=== PATIENT | male | born 1930 | race Caucasian/White ===

== ENCOUNTER 2016-10-29 14:43 | Emergency (ER) | payer OTHER ==
[2016-10-29 14:49] VITALS: BP 134/68; TEMP 99.3; BMI 29.5
[2016-10-29 15:25] LABS: BASOPHILS % (AUTO) 0.2 % (0.0-3.0); EOSINOPHILS % (AUTO) 0.1 % (0.0-7.0); HEMATOCRIT 35.4 % (42.0-52.0); HEMOGLOBIN 12.4 g/dl (14.0-18.0); IMMATURE GRANULOCYTE % (AUTO) 0.7 % (0.0-5.0); LYMPHOCYTES # (AUTO) 0.7 K/uL (0.60-3.4); LYMPHOCYTES % (AUTO) 5.3 (10.0-50.0); MEAN CORPUSCULAR HEMOGLOBIN 30.3 pg (27.0-31.0); MEAN CORPUSCULAR VOLUME 86.6 fl (80.0-94.0); MONOCYTES % (AUTO) 7.3 (0-10); NEUTROPHILS # (AUTO) 11.3 K/ul (2.0-6.9); NEUTROPHILS % (AUTO) 86.4; PLATELET COUNT 183 10^3/uL (140-440); RED BLOOD COUNT 4.09 10^6/ul (4.70-6.10)
--- NOTE | 2016-10-29 15:47 | DI ---
EXAM: Single frontal view of the chest HISTORY: Shortness of breath. COMPARISON: Chest x-ray 08/01/2014 FINDINGS: Cardiomediastinal silhouette is unchanged with atherosclerotic disease of the aorta. The pulmonary arteries are prominent but unchanged. There is mild pulmonary vascular indistinctness and minimal ground-glass. There is no pneumothorax or pleural effusion. There is no consolidation. T he osseous structures are unremarkable. IMPRESSION: 1. Prominent pulmonary arteries and mild pulmonary vascular indistinctness may suggest a component of vascular congestion. 2. Minimal ground-glass in the lower lobes may represent component of small airways inflammation ve rsus vascular congestion.
--- NOTE | 2016-10-29 15:48 | DI ---
EXAM: Radiographs, left ankle HISTORY: Left ankle pain. COMPARISON: None available. TECHNIQUE: Two views. FINDINGS: Bone mineralization is normal. There is no fracture or dislocation. The joint spaces ar e maintained although there is mild spurring along the dorsal aspect of the joints of the hindfoot a nd midfoot. Moderate sized calcaneal spurs are present at the Achilles tendon insertion and plantar aponeurosis. Atherosclerotic calcification. Diffuse subcutaneous edema noted. IMPRESSION: No fracture or dislocation.
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
[2016-10-29 16:06] LABS: ALANINE AMINOTRANSFERASE < 6 U/L (12-78); ALBUMIN 2.9 g/dL (3.4-5.0); ALBUMIN/GLOBULIN RATIO 0.66; ALKALINE PHOSPHATASE 55 U/L (56-119); ANION GAP 15.1; ASPARTATE AMINO TRANSFERASE 9 U/L (15-37); BILIRUBIN,TOTAL 0.92 mg/dL (0.00-1.20); BLOOD UREA NITROGEN 21 mg/dL (7-18); CARBON DIOXIDE 25 mmol/L (23-31); CHLORIDE 101 mmol/L (98-107); CREATINE KINASE 43 U/L; GLUCOSE 280 mg/dL (82-115); POTASSIUM 4.1 mmol/L (3.5-5.1); SODIUM 137 mmol/L (136-145); TOTAL PROTEIN 7.3 g/dL (5.8-8.1)
--- NOTE | 2016-10-29 16:10 | ED.PDOC ---
General ED Provider: Dr. KATHY VASQUEZ Chief Complaint: Altered Mental Status Stated Complaint: altered mental status Time Seen by Physician: 15:00 (history obtained from pt's son) Mode of Arrival: Walk-In Information Source: Patient Exam Limitations: No limitations Primary Care Provider: JESSICA PARRISH Referred to ED by: Other (supportive living pt arrived aox3) Nursing and Triage Documentation Reviewed and Agree: Yes (resides in a supportive living, was reported to be altered although AOX3 ) Miscellaneous Complaint Exam - Complex/Multi-System Complaint/Exam Onset/Duration: early today pt would not eat he was uncooperative Symptoms Are: Resolved (nursing described not coperative as new for pt at no point pt was disorientated) Initial Severity: Mild Current Severity: None Location of Pain: none Pain Radiates to: none Associated Signs and Symptoms: Denies: Decreased responsiveness, Confusion, Agitation, Dizziness, Weakness, Syncope, Headache, Short of air, Cough, Wheezing , Hemoptysis, Chest pain, Palpitations, Edema, Nausea, Vomiting, Diarrhea, Abdominal pain, Back pain, Dysuria, Hematemesis, Melena, Decreased oral intake, Fever, Diaphoresis, Immunocompromised, Anticoagulation Therapy, Recent medication changes, Indwelling medical biller coder, Prior MRSA, Prior VRE, Recent trauma, Remote trauma Recent Echo/LV Function: No Respiratory Distress: None JVD Present: No Tachypnea Present: No Stridor Present: No Glascow Coma Scale (see protocol): 15 Meningeal Signs Positive: No Focal Weakness: Present: None Focal Sensory Loss: Present: None Gait: Unable Gag Reflex Present: Yes Babinski Sign: Negative Right, Negative Left Joint Swelling Present: No In-Dwelling Device Present: No Differential Diagnosis: Metabolic Abnormality, Sepsis (diabetic foot ulcer ), Other Quality Indicators for AMI: EKG in 10min. Quality Indicator For Non-Traumatic Chest Pain/Syncope: EKG Performed Review of Systems - Review Of Systems Constitutional: Reports: Malaise Eyes: Reports: No symptoms Ears, Nose, Mouth, Throat: Reports: No symptoms Respiratory: Reports: No symptoms Cardiac: Reports: No symptoms GI: Reports: No symptoms : Reports: No symptoms Musculoskeletal: Reports: Other (LEFT FOOT ULCER PLEASE SEE PHOTOS) Skin: Reports: No symptoms Neurological: Reports: Cognitive dysfunction Endocrine: Reports: No symptoms Hematologic/Lymphatic: Reports: No symptoms All Other Systems: Reviewed and Negative Past Medical History - Past Medical History Previously Healthy: No Endocrine: Reports: DM 2 Cardiovascular: Reports: CAD, Hypertension Respiratory: Reports: None Hematological: Reports: None Gastrointestinal: Reports: None Genitourinary: Reports: None Neuro/Psych: Reports: None Musculoskeletal: Reports: None 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 - Surgical History General Surgical History: Reports: None - Family History Family History: Reports: Unknown - Social History Smoking Status: Never smoker Hx Substance Use: No Alcohol Screening: None Physical Exam - Physical Exam Appearance: Ill-appearing Ill-appearing: Mild Pain Distress: Mild Eyes: NARAYAN, EOMI, Conjunctiva clear ENT: Ears normal, Nose normal, Oropharynx normal Respiratory: Airway patent, Breath sounds clear, Breath sounds equal, Respirations nonlabored Cardiovascular: RRR, Pulses normal, No rub, No murmur GI/: Soft, Nontender, No masses, Bowel sounds normal, No Organomegaly Musculoskeletal: Edema (bilateral lower ext , diabetic foot ulcer please see photos ) Skin: Warm, Dry, Normal color Neurological: Sensation intact, Motor intact, Reflexes intact, Cranial nerves intact, Alert, Oriented Psychiatric: Affect appropriate, Mood appropriate Interpretation - Radiology Interpretation Radiology Interpretation By: Radiologist Radiology Results: Negative Exam Interpreted: CXR - Manager Business Information Rate: Normal Rhythm: Sinus Ectopy: None - EKG Interpretation Rate: Normal Rhythm: Sinus Ectopy: None [place]: [place] ST Segment: Normal Physician Notification - Case Discussed Physician Notified: SHANDA FLORES Time of Notification: 16:46 (TRANSFER ) Critical Care Note - Critical Care Note Total Time (mins): 0 Course - Course Hematology/Chemistry: 10/29/16 15:00 10/29/16 15:00 Orders, Labs, Meds: Lab Review 10/29/16 15:00 WBC 13.10 H RBC 4.09 L Hgb 12.4 L Hct 35.4 L MCV 86.6 MCH 30.3 MCHC 35.0 RDW Coeff of Lexy 12.4 Plt Count 183 Immature Gran % (Auto) 0.7 Neut % (Auto) 86.4 Lymph % (Auto) 5.3 L [place] % (Auto) 7.3 Eos % (Auto) 0.1 Baso % (Auto) 0.2 Immature Gran # (Auto) 0.1 Neut # 11.3 H Lymph # 0.7 [place] # 1.0 Eos # 0.0 Baso # 0.0 Sodium 137 Potassium 4.1 Chloride 101 Carbon Dioxide 25 Anion Gap 15.1 BUN 21 H Creatinine 1.40 H Estimated GFR (MDRD) 48.00 BUN/Creatinine Ratio 15.00 Glucose 280 H Calcium 10.0 Total Bilirubin 0.92 AST 9 L ALT < 6 L Alkaline Phosphatase 55 L Total Creatine Kinase 43 Troponin I 0.5940 H* Total Protein 7.3 Albumin 2.9 L Globulin 4.4 Albumin/Globulin Ratio 0.66 Orders Category Date Time Status EKG-(ED ONLY) Stat CARDIO 10/29/16 14:59 Completed EKG-(ED ONLY) Stat CARDIO 10/29/16 16:08 Completed BLOOD CULTURE Stat LAB 10/29/16 16:44 Ordered CBC W/ AUTO DIFF Stat LAB 10/29/16 15:00 Completed COMPREHENSIVE METABOLIC PANEL Stat LAB 10/29/16 15:00 Completed CREATINE KINASE Stat LAB 10/29/16 15:00 Completed LACTIC ACID Stat LAB 10/29/16 16:44 Ordered PROCALCITONIN Stat LAB 10/29/16 Ordered TROPONIN I Stat LAB 10/29/16 15:00 Completed URINALYSIS C & S IF INDICATED Stat LAB 10/29/16 14:59 Uncollected WOUND CULTURE Stat LAB 10/29/16 16:26 Ordered Ceftriaxone Sodium [Rocephin] MEDS 10/29/16 16:38 Discontinued 1 gm .ROUTE .STK-MED ONE Ceftriaxone Sodium [Rocephin] 1 gm MEDS 10/29/16 16:33 Active 0.9 % Sodium Chloride [Sodium Chloride] 50 ml IV ONCE Sodium Chloride 0.9% [Sodium Chloride] 500 ml MEDS 10/29/16 16:33 Active IV 125 mls/hr ANKLE, LEFT MIN 3 VIEWS Stat RADS 10/29/16 15:23 Completed CHEST, 1V AP ONLY Stat RADS 10/29/16 15:[address] HEAD W/O CONTRAST Stat RADS 10/29/16 14:59 Completed Medications Generic Name Dose Route Start Last Admin Trade Name Freq PRN Reason Stop Dose Admin Sodium Chloride 500 mls @ 125 mls/hr 10/29/16 16:33 Sodium Chloride IV 10/29/16 20:32 .Q4H STA Ceftriaxone Sodium 1 gm/ 50 mls @ 75 mls/hr 10/29/16 16:33 Sodium Chloride IV 10/29/16 17:12 ONCE STA Vital Signs: Temp Pulse Resp BP Pulse Ox 10/29/16 14:44 99.3 F 80 18 134/68 95 Departure - Departure Time of Disposition: 17:00 (spoke with the patients son and informed Dr parrish that we will transfer the patient. Wound evaluation and debridement was done. L ankle head CT and chest x ray was ordered and no abnormalities seen. ) Disposition: TSF SHORT-TRM HOSP Discharge Problem: Altered mental status Instructions: Diabetic Foot Ulcers (ED) Condition: Good Pt referred to PMD for follow-up: Yes (wants to transfer the pt) Allergies/Adverse Reactions: Allergies DANNY Inhibitors Allergy (Verified 10/29/16 15:19) perindopril erbumine [From Aceon] Adverse Reaction (Verified 10/29/16 15:19) Home Medications: Ambulatory Orders Aspirin [Aspirin EC] 81 mg PO DAILY 08/01/14 Tamsulosin HCl [Flomax] 0.4 mg PO DAILY 08/01/14 Donepezil HCl [Aricept] 5 mg PO DAILY tab-cap 07/19/15 Escitalopram Oxalate [Lexapro] 10 mg PO DAILY tab-cap 07/19/15 Levothyroxine Sodium [Synthroid] 50 mcg PO DAILY tab-cap 07/19/15 Lorazepam 0.5 mg PO BEDTIME tab-cap 07/19/15 Memantine HCl [Namenda Xr] 28 mg PO DAILY tab-cap 07/19/15 Pantoprazole Sodium [Protonix] 40 mg PO DAILY tab-cap 07/19/15 Pravastatin Sodium 40 mg PO BEDTIME tab-cap 07/19/15 Sitagliptin Phos/Metformin HCl [Janumet 50-500 Mg Tablet] 1 each PO DAILY tab- cap 07/19/15
[2016-10-29] MEDS ORDERED: ROCEPHIN 1 GM in SODIUM CHLORIDE 50 ML IV STA (16:33)
[2016-10-29] MEDS ORDERED: SODIUM CHLORIDE 500 ML IV STA (16:33)
[2016-10-29] MEDS ORDERED: ROCEPHIN ONE (16:38)
== END 2016-10-29 17:20 | disposition short-term general hospital (02) ==
LOC: ED 14:43
DX: R41.82 Altered mental status, unspecified (principal); E11.621 Type 2 diabetes mellitus with foot ulcer; L97.429 Non-pressure chronic ulcer of left heel and midfoot with unspecified severity; L97.529 Non-pressure chronic ulcer of other part of left foot with unspecified severity; Z79.4 Long term (current) use of insulin; R60.0 Localized edema; I25.10 Atherosclerotic heart disease of native coronary artery without angina pectoris; I11.9 Hypertensive heart disease without heart failure; Z79.899 Other long term (current) drug therapy
CPT/HCPCS: 36415; 80053; 82550; 83605; 84145; 84484; 85025; 87040; 87070; 93005; 93010; 96365; 99285

== ENCOUNTER 2016-10-29 17:26 | Outpatient (CLI) ==
[2016-10-29 14:49] VITALS: BMI 29.5
== END 2016-10-29 17:27 | disposition home or self-care (01) ==
LOC: AMBL 17:26
PROVIDERS: ATTEND Internal Medicine Geriatric Medicine
DX: S91.301A Unspecified open wound, right foot, initial encounter (principal); S91.104A Unspecified open wound of right lesser toe(s) without damage to nail, initial encounter; B95.62 Methicillin resistant Staphylococcus aureus infection as the cause of diseases classified elsewhere; E11.9 Type 2 diabetes mellitus without complications; G30.9 Alzheimer's disease, unspecified; F02.80 Dementia in other diseases classified elsewhere, unspecified severity, without behavioral disturbance, psychotic disturbance, mood disturbance, and anxiety

== ENCOUNTER 2016-12-11 23:50 | Emergency (ER) ==
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
[2016-12-12 00:19] VITALS: BP 122/65; TEMP 97.6; BMI 31.1
--- NOTE | 2016-12-12 00:36 | CT ---
EXAM: CT maxillofacial without intravenous contrast 12/12/2016. Sagittal and coronal reformatted i mages obtained HISTORY: Fall COMPARISON: 12/12/2016 FINDINGS: No gross soft tissue abnormality. The orbits, zygoma, maxilla and mandible appear intact. There are multiple mildly displaced nasal bone fractures. The paranasal sinuses appear well aerated. IMPRESSION: 1. Multiple mildly displaced nasal bone fractures. 2. The remaining osseous structures appear intact.
--- NOTE | 2016-12-12 00:36 | CT ---
EXAM: CT head without contrast. HISTORY: Fall. PROCEDURE: Contiguous axial CT images of the head without contrast with coronal and sagittal reform ats. FINDINGS: There is diffuse cerebral atrophy. The ventricles and basal cisterns are normal in size an d configuration. No evidence of mass or midline shift. No intracranial hemorrhage or evidence of l arge vessel infarct. No extra-axial fluid collection. There are chronic small vessel ischemic fuentes es in the white matter. There is minimal soft tissue swelling in the right frontal scalp. No skull f racture. The paranasal sinuses and mastoid air cells are well-aerated. Impression: No intracranial hemorrhage or skull fracture. Chronic small vessel ischemic changes. Diffuse cerebral atrophy. Minimal soft tissue swelling in the right frontal scalp.
--- NOTE | 2016-12-12 00:42 | CT ---
EXAM: CT cervical spine without intravenous contrast 12/11/2016. Sagittal and coronal reformatted images obtained HISTORY: Fall COMPARISON: None FINDINGS: Normal anatomic alignment is maintained. The vertebral bodies appear intact without evide nce of fracture. The facet joints align normally. The prevertebral soft tissues appear within normal limits. Multilevel chronic degenerative disc disease and facet arthropathy. Multilevel posterior disc bulge /osteophyte complex flattening the thecal sac. There is suggestion of multilevel spinal stenosis th roughout the cervical spine. Multilevel chronic neural foraminal stenosis. IMPRESSION: 1. No acute post traumatic osseous abnormality of the cervical spine. 2. Chronic degenerative disc disease. Multilevel spinal and neural foraminal stenosis.
== END 2016-12-12 02:05 ==
LOC: ED 23:50
DX: S02.2XXA Fracture of nasal bones, initial encounter for closed fracture (principal); S00.81XA Abrasion of other part of head, initial encounter; W19.XXXA Unspecified fall, initial encounter; Y93.9 Activity, unspecified; Y92.129 Unspecified place in nursing home as the place of occurrence of the external cause
CPT/HCPCS: 99283

== ENCOUNTER 2016-12-12 02:15 | Outpatient (CLI) ==
[2016-12-12 00:19] VITALS: BMI 31.1
== END 2016-12-12 02:16 ==
LOC: AMBL 02:15
PROVIDERS: ATTEND Internal Medicine Geriatric Medicine
DX: Z76.89 Persons encountering health services in other specified circumstances (principal)

== ENCOUNTER 2017-03-17 13:25 | Inpatient (IN) ==
--- NOTE | 2017-03-17 13:56 | ED.PDOC ---
General ED Provider: Dr. CARRINGTON HAYNES Chief Complaint: Altered Mental Status Stated Complaint: Additional confusion over baseline per son; legs swollen Time Seen by Physician: 13:50 Mode of Arrival: Walk-In Information Source: Family, Detention Exam Limitations: No limitations, Dementia (Don furnishes most information) Primary Care Provider: JESSICA PARRISH Nursing and Triage Documentation Reviewed and Agree: Yes Review of Systems - Review Of Systems Constitutional: Reports: No symptoms Neurological: Reports: Other (More confused than baseline (Dementia)) All Other Systems: Reviewed and Negative (Information from son) Past Medical History - Past Medical History Previously Healthy: No Endocrine: Reports: DM 2 Cardiovascular: Reports: CAD, Hypertension Respiratory: Reports: None Hematological: Reports: None Gastrointestinal: Reports: None Genitourinary: Reports: None Neuro/Psych: Reports: None Musculoskeletal: Reports: None 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 - Surgical History General Surgical History: Reports: None - Family History Family History: Reports: Unknown - Social History Smoking Status: Never smoker Hx Substance Use: No Alcohol Screening: None - Immunizations Tetanus Shot up to Date: No Physical Exam - Physical Exam Appearance: Ill-appearing Ill-appearing: Mild Pain Distress: None Eyes: NARAYAN, EOMI ENT: Ears normal, Nose normal, Oropharynx normal Neck: Supple (Holds breath on request; no carotid bruits) Respiratory: Airway patent, Breath sounds clear Cardiovascular: RRR, Pulses normal GI/: Soft, Nontender Musculoskeletal: Normal strength, ROM intact, Edema (Bilateral LEs) Skin: Warm, Dry, Normal color (Except mild bilateral LE erythema) Neurological: Sensation intact, Motor intact Interpretation - EKG Interpretation Time of EKG #1: 14:18 Rate: Normal Rhythm: Sinus Ectopy: None ST Segment: Normal Critical Care Note - Critical Care Note Total Time (mins): 40 Course - Course Hematology/Chemistry: 03/17/17 14:25 03/17/17 14:25 Orders, Labs, Meds: Lab Review 03/17/17 03/17/17 03/17/17 14:25 14:25 14:30 WBC 7.93 RBC 3.80 L Hgb 10.7 L Hct 31.6 L MCV 83.2 MCH 28.2 MCHC 33.9 RDW Coeff of Lexy 15.6 H Plt Count 162 Immature Gran % (Auto) 0.3 Neut % (Auto) 72.4 Lymph % (Auto) 19.3 [place] % (Auto) 6.4 Eos % (Auto) 1.1 Baso % (Auto) 0.5 Immature Gran # (Auto) 0.0 Neut # 5.7 Lymph # 1.5 Jasper # 0.5 Eos # 0.1 Baso # 0.0 Sodium 142 Potassium 3.8 Chloride 106 Carbon Dioxide 25 Anion Gap 14.8 BUN 25 H Creatinine 1.64 H Estimated GFR (MDRD) 40.00 BUN/Creatinine Ratio 15.24 Glucose 144 H Calcium 9.7 Total Bilirubin 0.38 AST 8 L ALT 7 L Alkaline Phosphatase 50 L Total Creatine Kinase 20 Troponin I < 0.0100 Total Protein 6.8 Albumin 3.1 L Globulin 3.7 Albumin/Globulin Ratio 0.84 Urine Color Urine Clarity Urine pH Ur Specific [place] Urine Protein Urine Glucose (UA) Urine Ketones Urine Blood Urine Nitrite Urine Bilirubin Urine Urobilinogen Ur Leukocyte Esterase Influenza A (Rapid) Negative Influenza B (Rapid) Negative 03/17/17 16:05 WBC RBC Hgb Hct MCV MCH MCHC RDW Coeff of Lexy Plt Count Immature Gran % (Auto) Neut % (Auto) Lymph % (Auto) [place] % (Auto) Eos % (Auto) Baso % (Auto) Immature Gran # (Auto) Neut # Lymph # [place]asper # Eos # Baso # Sodium Potassium Chloride Carbon Dioxide Anion Gap BUN Creatinine Estimated GFR (MDRD) BUN/Creatinine Ratio Glucose Calcium Total Bilirubin AST ALT Alkaline Phosphatase Total Creatine Kinase Troponin I Total Protein Albumin Globulin Albumin/Globulin Ratio Urine Color Yellow Urine Clarity Clear Urine pH 6.0 Ur Specific [place] 1.010 Urine Protein Negative Urine Glucose (UA) Negative Urine Ketones Negative Urine Blood Negative Urine Nitrite Negative Urine Bilirubin Negative Urine Urobilinogen 0.2 Ur Leukocyte Esterase Negative Influenza A (Rapid) Influenza B (Rapid) Orders Category Date Time Status ADMIT PATIENT INPATIENT .TO [facility] (MONITORED BED) ADMISSION 03/17/17 16: 35 Active EKG-(ED ONLY) Stat CARDIO 03/17/17 14:01 Completed EKG-(IP & OP ONLY) DAILY CARDIO 03/18/17 06:00 Ordered EKG-(IP & OP ONLY) DAILY CARDIO 03/19/17 06:00 Ordered ACTIVITY .Complete BR CARE 03/17/17 16:24 Active INTAKE & OUTPUT Q8HR CARE 03/17/17 16:25 Active INTAKE & OUTPUT Q8HR CARE 03/17/17 16:35 Active VITAL SIGNS Q8HR CARE 03/17/17 16:24 Active CARDIAC DIET DIETARY 03/17/17 Dinner Ordered CBC W/ AUTO DIFF DAILY@0600 LAB 03/18/17 06:00 Ordered CBC W/ AUTO DIFF DAILY@0600 LAB 03/19/17 06:00 Ordered CBC W/ AUTO DIFF Stat LAB 03/17/17 14:25 Completed COMPREHENSIVE METABOLIC PANEL DAILY@0600 LAB 03/18/17 06:00 Ordered COMPREHENSIVE METABOLIC PANEL DAILY@0600 LAB 03/19/17 06:00 Ordered COMPREHENSIVE METABOLIC PANEL Stat LAB 03/17/17 14:25 Completed CREATINE KINASE Stat LAB 03/17/17 14:25 Completed MOLECULAR GROUP A STREP Stat LAB 03/17/17 14:30 Results RAPID FLU A/B Stat LAB 03/17/17 14:30 Completed STREP SCREEN Stat LAB 03/17/17 14:30 Results TROPONIN I Stat LAB 03/17/17 14:25 Completed URINALYSIS C & S IF INDICATED Stat LAB 03/17/17 16:05 Completed Furosemide [Lasix] MEDS 03/17/17 16:45 Active 40 mg IVP QDAC Sodium Chloride 0.9% [Sodium Chloride] 1,000 ml MEDS 03/17/17 17:00 Active IV 50 mls/hr RESUSCITATION STATUS Routine OTHERS 03/17/17 16:35 Ordered CHEST, 1V AP ONLY Stat RADS 03/17/17 14:[address] HEAD W/O CONTRAST Stat RADS 03/17/17 14:52 Completed Medications Generic Name Dose Route Start Last Admin Trade Name Freq PRN Reason Stop Dose Admin Acetaminophen 650 mg 03/17/17 16:40 Tylenol PO Q4H PRN Mild Pain Aspirin 81 mg 03/18/17 08:00 Aspirin Ec PO DAILYWM [facility] Atorvastatin Calcium 10 mg 03/17/17 21:00 Lipitor PO BEDTIME [facility] Escitalopram Oxalate 10 mg 03/18/17 09:00 Lexapro PO DAILY [facility] Furosemide 40 mg 03/17/17 16:45 Lasix IVP QDAC [facility] Sodium Chloride 1,000 mls @ 50 mls/hr 03/17/17 17:00 Sodium Chloride IV .Q20H [facility] Insulin Detemir 20 unit 03/17/17 21:00 Levemir SUBCUT BEDTIME [facility] Levothyroxine Sodium 50 mcg 03/18/17 06:30 Synthroid PO QDAC [facility] Linagliptin 5 mg 03/18/17 09:00 Tradjenta PO DAILY [facility] Memantine 10 mg 03/17/17 21:00 Namenda PO BID [facility] Metformin HCl 500 mg 03/18/17 09:00 Glucophage PO DAILY [facility] Pantoprazole Sodium 40 mg 03/18/17 06:30 Protonix PO QDAC [facility] Tamsulosin HCl 0.4 mg 03/18/17 09:00 Flomax PO DAILY [facility] Discontinued Medications Generic Name Dose Route Start Last Admin Trade Name Freq PRN Reason Stop Dose Admin Furosemide 40 mg 03/17/17 16:39 03/17/17 16:49 Lasix IVP 03/17/17 16:40 40 mg ONCE STA Administration Furosemide 20 mg 03/18/17 09:00 Lasix Tab PO DAILY [facility] Vital Signs: Temp Pulse Resp BP Pulse Ox 03/17/17 13:27 95.1 F L 70 16 151/76 H 96 Departure - Departure Time of Disposition: 16:45 Disposition: ADMITTED INPATIENT Discharge Problem: CHF (congestive heart failure) Qualifiers: Congestive heart failure type: unspecified congestive heart failure type Congestive heart failure chronicity: chronic Qualified Code(s): I50.9 - Heart failure, unspecified Condition: Stable Pt referred to PMD for follow-up: Yes (Follow up after discharge) Allergies/Adverse Reactions: Allergies DANNY Inhibitors Allergy (Verified 03/17/17 13:43) perindopril erbumine [From Aceon] Adverse Reaction (Verified 03/17/17 13:43) Home Medications: Ambulatory Orders Tamsulosin HCl [Flomax] 0.4 mg PO DAILY 08/01/14 Escitalopram Oxalate [Lexapro] 10 mg PO DAILY tab-cap 07/19/15 Levothyroxine Sodium [Synthroid] 50 mcg PO DAILY tab-cap 07/19/15 Pantoprazole Sodium [Protonix] 40 mg PO DAILY tab-cap 07/19/15 Acetaminophen [Tylenol] 650 mg PO Q4H PRN 12/12/16 Aspirin [Aspirin EC] 81 mg PO DAILY 12/12/16 Atorvastatin Calcium [Lipitor] 10 mg PO BEDTIME 12/12/16 Insulin Detemir [Levemir] 20 unit SUBCUT BEDTIME 12/12/16 Linagliptin [Tradjenta] 5 mg PO DAILY 12/12/16 Memantine HCl [Namenda] 10 mg PO BID 12/12/16 Metformin HCl [Glucophage] 500 mg PO DAILY 12/12/16 Furosemide [Lasix] 20 mg PO DAILY 03/17/17
--- NOTE | 2017-03-17 14:26 | DI ---
Exam: Single x-ray of the chest. Comparison: 10/29/2016. Reason for exam: Chest pain. FINDINGS: There is blunting of both costophrenic angles with patchy airspace opacities bilaterally. Increased interstitial lung markings are seen with pulmonary vascular indistinctness. The cardiac s ilhouette remains mildly prominent in size. The imaged osseous structures are grossly unremarkable w ithout acute fracture. Impression: 1. Similar appearing pulmonary vascular congestion with cardiomegaly. 2. Blunting of both costophrenic angles and patchy airspace opacities consistent with atelectasis or pneumonia.
[2017-03-17 14:34] LABS: BASOPHILS % (AUTO) 0.5 % (0.0-3.0); EOSINOPHILS # (AUTO) 0.1 K/ul (0.0-0.7); EOSINOPHILS % (AUTO) 1.1 % (0.0-7.0); HEMATOCRIT 31.6 % (42.0-52.0); HEMOGLOBIN 10.7 g/dl (14.0-18.0); IMMATURE GRANULOCYTE % (AUTO) 0.3 % (0.0-5.0); LYMPHOCYTES # (AUTO) 1.5 K/uL (0.60-3.4); LYMPHOCYTES % (AUTO) 19.3 (10.0-50.0); MEAN CORPUSCULAR HEMOGLOBIN 28.2 pg (27.0-31.0); MEAN CORPUSCULAR HGB CONC 33.9 (31.8-35.4); MEAN CORPUSCULAR VOLUME 83.2 fl (80.0-94.0); MONOCYTES # (AUTO) 0.5 K/uL (0.4-2.0); MONOCYTES % (AUTO) 6.4 (0-10); NEUTROPHILS # (AUTO) 5.7 K/ul (2.0-6.9); NEUTROPHILS % (AUTO) 72.4; PLATELET COUNT 162 10^3/uL (140-440); WHITE BLOOD COUNT 7.93 K/ul (4.2-10.2)
[2017-03-17 14:54] LABS: FLU INTERNAL QC INTERNAL QC VALID; RAPID FLU A NEGATIVE (NEGATIVE); RAPID FLU B NEGATIVE (NEGATIVE)
[2017-03-17 15:01] LABS: ALANINE AMINOTRANSFERASE 7 U/L (12-78); ALBUMIN 3.1 g/dL (3.4-5.0); ALBUMIN/GLOBULIN RATIO 0.84; ALKALINE PHOSPHATASE 50 U/L (56-119); ANION GAP 14.8; ASPARTATE AMINO TRANSFERASE 8 U/L (15-37); BILIRUBIN,TOTAL 0.38 mg/dL (0.00-1.20); BLOOD UREA NITROGEN 25 mg/dL (7-18); BUN/CREATININE RATIO 15.24; CALCIUM 9.7 mg/dL (8.2-10.2); CARBON DIOXIDE 25 mmol/L (23-31); CHLORIDE 106 mmol/L (98-107); CREATINE KINASE 20 U/L; CREATININE 1.64 mg/dL (0.60-1.10); GLUCOSE 144 mg/dL (82-115); POTASSIUM 3.8 mmol/L (3.5-5.1); SODIUM 142 mmol/L (136-145); TOTAL PROTEIN 6.8 g/dL (5.8-8.1)
--- NOTE | 2017-03-17 15:49 | CT ---
Exam: CT of the brain without intravenous contrast. Comparison: 12/12/2016. Reason for exam: Altered mental status. FINDINGS: No acute intracranial hemorrhage, mass effect, ventricular dilatation, or territorial infa rction. The quadrigeminal and ambient cisterns are patent. There is no extraaxial fluid collection. The quadrigeminal and ambient cisterns are patent. There is no extraaxial fluid collection. 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 Parenchymal changes are seen consistent with chronic microvascular disease and age related atrophy. Calcifications are seen in t he internal carotid and vertebral arteries. The calvarium is intact. There is mild mucosal thickening in the ethmoid sinuses. The frontal sinuses, maxillary sinuses, and sphenoid sinuses are unopacified. The mastoid air cells appear normally pneumatized. Impression: 1. No acute intracranial findings. 2. Parenchymal changes consistent with chronic microvascular disease and age related atrophy. 3. Mild mucosal thickening in the ethmoid sinuses. Report faxed at [phone] hours on 03/17/2017
[2017-03-17 16:18] LABS: BILIRUBIN,URINE Negative (NEGATIVE); KETONES,URINE Negative (NEGATIVE); LEUKOCYTE ESTERASE ,URINE Negative (NEGATIVE); NITRITE,URINE Negative (NEGATIVE); PROTEIN,URINE Negative (NEGATIVE); URINE, BLOOD Negative (NEGATIVE)
[2017-03-17 16:20] LABS: ADD URINE MICROSCOPIC NO
[2017-03-17] MEDS ORDERED: LASIX IVP STA (16:39)
[2017-03-17] MEDS ORDERED: TYLENOL PO PRN (16:40)
[2017-03-17 17:38] VITALS: BMI 29.5
[2017-03-17] MEDS: LASIX IVP SCH (18:10)
[2017-03-17] MEDS: SODIUM CHLORIDE 1,000 ML IV SCH (18:16)
[2017-03-17] MEDS: NAMENDA PO SCH (20:29)
[2017-03-17] MEDS: LIPITOR PO SCH (20:29)
[2017-03-17] MEDS: LEVEMIR SUBCUT SCH (20:31)
[2017-03-18 05:18] LABS: BASOPHILS % (AUTO) 0.6 % (0.0-3.0); EOSINOPHILS # (AUTO) 0.1 K/ul (0.0-0.7); HEMATOCRIT 31.1 % (42.0-52.0); HEMOGLOBIN 10.3 g/dl (14.0-18.0); IMMATURE GRANULOCYTE % (AUTO) 0.3 % (0.0-5.0); LYMPHOCYTES # (AUTO) 1.2 K/uL (0.60-3.4); LYMPHOCYTES % (AUTO) 17.9 (10.0-50.0); MEAN CORPUSCULAR HGB CONC 33.1 (31.8-35.4); MEAN CORPUSCULAR VOLUME 84.5 fl (80.0-94.0); MONOCYTES # (AUTO) 0.6 K/uL (0.4-2.0); MONOCYTES % (AUTO) 9.1 (0-10); NEUTROPHILS # (AUTO) 4.9 K/ul (2.0-6.9); NEUTROPHILS % (AUTO) 71.1; PLATELET COUNT 144 10^3/uL (140-440); RED BLOOD COUNT 3.68 10^6/ul (4.70-6.10); WHITE BLOOD COUNT 6.94 K/ul (4.2-10.2)
[2017-03-18 05:35] LABS: ALBUMIN 2.9 g/dL (3.4-5.0); ALBUMIN/GLOBULIN RATIO 0.83; ANION GAP 11.9; BILIRUBIN,TOTAL 0.37 mg/dL (0.00-1.20); BUN/CREATININE RATIO 16.32; CALCIUM 9.6 mg/dL (8.2-10.2); CREATININE 1.47 mg/dL (0.60-1.10); POTASSIUM 3.9 mmol/L (3.5-5.1); TOTAL PROTEIN 6.4 g/dL (5.8-8.1)
[2017-03-18] MEDS: SYNTHROID PO SCH (06:23)
[2017-03-18] MEDS: PROTONIX PO SCH (06:23)
[2017-03-18] MEDS: LASIX IVP SCH (06:23)
[2017-03-18] MEDS: ASPIRIN EC PO SCH (08:27)
[2017-03-18] MEDS: TRADJENTA PO SCH (08:28)
[2017-03-18] MEDS: FLOMAX PO SCH (08:28)
[2017-03-18] MEDS: LEXAPRO PO SCH (08:28)
[2017-03-18] MEDS: NAMENDA PO SCH ×2 (08:28→21:11)
[2017-03-18] MEDS ORDERED: GLUCOPHAGE PO SCH (09:00)
[2017-03-18] MEDS ORDERED: LASIX TAB PO SCH (09:00)
[2017-03-18] MEDS: HUMULIN R SUBCUT PRN ×3 (11:06→21:11)
--- NOTE | 2017-03-18 12:28 | PCM.PROG ---
Attending Provider: ATTENDING PROVIDER: Dr. JESSICA PARRISH This patient is seen with Sendy Lantigua, Nurse Practitioner. DATE OF SERVICE: 03/18/17 SUBJECTIVE: This 86 year old WHITE/ M was hospitalized 03/17/17. The patient is lying in bed, alert. He states he is confused. REVIEW OF SYSTEMS: CONSTITUTIONAL: No night sweats. No fatigue, malaise, lethargy. No fever or chills. HEENT: Eyes: No visual changes. No eye pain. No eye discharge. ENT: No runny nose. No epistaxis. No sinus pain. No odynophagia. No congestion. RESPIRATORY: No cough, no congestion. No hemoptysis. Shortness of breath. CARDIOVASCULAR: No angina symptoms. No CHF symptoms. No atypical chest pain for CAD. No palpitations. No orthopnea.. GASTROINTESTINAL: No abdominal pain. No nausea or vomiting. No diarrhea or constipation. No hematemesis. No hematochezia. GENITOURINARY: No urgency. No frequency. No dysuria. No hematuria. No obstructive symptoms. No discharge. No pain. No significant abnormal bleeding. MUSCULOSKELETAL: Positive for leg edema. No musculoskeletal pain; no joint swelling. NEUROLOGICAL: Awake, alert, oriented to time, place and person. No headache. No neck pain. No syncope. No seizures. No dizziness. PSYCHIATRIC: Not anxious. No depression. No suicidal thoughts. No homicidal thoughts. SKIN: No rash. No lesions. No wounds. ENDOCRINE: No unexplained weight loss. No weight gain. HEMATOLOGIC/LYMPHATIC: No anemia. No purpura. No petechiae. No prolonged or excessive bleeding. No palpable lymph nodes. PHYSICAL EXAMINATION: GENERAL: The patient is awake, alert and oriented, lying in bed in no distress. VITAL SIGNS: Temperature 98.0 F, Pulse 63, Respiratory Rate 16, BP 133/76, Pulse Ox 97% HEENT: Head normocephalic, atraumatic. Eyes: Extraocular muscles are intact. Pupils are equal, round and reactive to light and accommodation. Ears: No lesions. Nose appeared normal. Throat: No exudate or erythema. NECK: Supple. No JVD, no carotid bruit. No lymphadenopathy or thyromegaly. LUNGS: Diminished breath sounds. Clear to auscultation. Percussion note normal. Chest symmetrical. HEART: S1, S2, no S3. No murmurs. No cyanosis or clubbing. No ascites. Pulses: Dorsalis pedis and posterior tibial pulses +1 to +2 both sides. ABDOMEN: Soft. Non-tender. Bowel sounds active. No CVA tenderness. No mass felt. EXTREMITIES: Trace to 1+ edema bilateral. Full range of motion of all extremities, equal. NEUROLOGIC: No focal deficit. Cranial nerves II through XII are grossly intact. No headache, no double vision or headache. SKIN: Not dry. Intact. Turgor-normal. LYMPHATIC: No palpable lymph nodes/no lymphedema. MUSCULOSKELETAL: Normal joints with no swelling. Muscle tone is normal. LAB REVIEW: 03/18/17 04:40 03/18/17 04:40 03/18/17 04:40: Sodium 142, Potassium 3.9, Chloride 107, Carbon Dioxide 27, Anion Gap 11.9, BUN 24 H, Creatinine 1.47 H, Estimated GFR (MDRD) 46.00, BUN/ Creatinine Ratio 16.32, Glucose 139 H, Calcium 9.6, Total Bilirubin 0.37, AST 7 L, ALT 7 L, Alkaline Phosphatase 47 L, Total Protein 6.4, Albumin 2.9 L, Globulin 3.5, Albumin/Globulin Ratio 0.83 03/18/17 04:40: WBC 6.94, RBC 3.68 L, Hgb 10.3 L, Hct 31.1 L, MCV 84.5, MCH 28.0 , MCHC 33.1, RDW Coeff of Lexy 15.5 H, Plt Count 144, Immature Gran % (Auto) 0.3 , Neut % (Auto) 71.1, Lymph % (Auto) 17.9, Adams % (Auto) 9.1, Eos % (Auto) 1.0, Baso % (Auto) 0.6, Immature Gran # (Auto) 0.0, Neut # 4.9, Lymph # 1.2, Adams # 0.6, Eos # 0.1, Baso # 0.0 03/17/17 16:40: B-Natriuretic Peptide 639 H ASSESSMENT: 1. Bilateral leg edema 2. Acute CHF 3. Diabetes mellitus Type 2 PLAN: 1. Daily weights 2. Echo 3. Continue 40 mg Lasix IV daily 4. Hold Metformin Plan and coordination of the patient's care discussed in the presence of Energy Assistant and nurse. CONDITION: Stable SCRIBED BY: BRITTANY MARIN Motor Vehicle Field Representative scribed while in presence of service performed by Dr. Parrish/Sendy Lantigua APRN on 03/18/17 ([id number])
[2017-03-18] MEDS: SODIUM CHLORIDE 1,000 ML IV SCH (14:37)
--- NOTE | 2017-03-18 14:42 | PN ---
DATE OF SERVICE: 03/18/17 SUBJECTIVE: The patient was hospitalized with congestive heart failure type of picture but mainly the problem was leg edema. His leg edema is somewhat better. The patient' s leg edema is mostly dependent edema and some contribution is from congestive heart failure and malnutrition with hypoprotienemia. The patient is demented. He knows me though. No symptoms of CHF. No symptoms of coronary insufficiency. The patient's son wants him to be comfortable. They do not want any aggressive measures. The patient's condition is stable. TIME SPENT: More than 30 minutes. Plan and coordination of the patient's care discussed in the presence of nurse. KAMRYN
[2017-03-18] MEDS: LIPITOR PO SCH (21:11)
[2017-03-18] MEDS: LEVEMIR SUBCUT SCH (21:12)
[2017-03-19 04:56] LABS: BASOPHILS % (AUTO) 0.4 % (0.0-3.0); EOSINOPHILS # (AUTO) 0.1 K/ul (0.0-0.7); EOSINOPHILS % (AUTO) 1.6 % (0.0-7.0); HEMATOCRIT 32.8 % (42.0-52.0); HEMOGLOBIN 10.8 g/dl (14.0-18.0); IMMATURE GRANULOCYTE % (AUTO) 0.3 % (0.0-5.0); LYMPHOCYTES # (AUTO) 1.5 K/uL (0.60-3.4); LYMPHOCYTES % (AUTO) 19.9 (10.0-50.0); MEAN CORPUSCULAR HEMOGLOBIN 28.1 pg (27.0-31.0); MEAN CORPUSCULAR HGB CONC 32.9 (31.8-35.4); MEAN CORPUSCULAR VOLUME 85.4 fl (80.0-94.0); MONOCYTES # (AUTO) 0.7 K/uL (0.4-2.0); MONOCYTES % (AUTO) 8.7 (0-10); NEUTROPHILS # (AUTO) 5.3 K/ul (2.0-6.9); NEUTROPHILS % (AUTO) 69.1; PLATELET COUNT 163 10^3/uL (140-440); RED BLOOD COUNT 3.84 10^6/ul (4.70-6.10); WHITE BLOOD COUNT 7.67 K/ul (4.2-10.2)
[2017-03-19 05:19] LABS: ALBUMIN 2.9 g/dL (3.4-5.0); ALBUMIN/GLOBULIN RATIO 0.81; ANION GAP 12.7; BILIRUBIN,TOTAL 0.35 mg/dL (0.00-1.20); BUN/CREATININE RATIO 19.4; CALCIUM 9.8 mg/dL (8.2-10.2); CREATININE 1.34 mg/dL (0.60-1.10); POTASSIUM 3.7 mmol/L (3.5-5.1); TOTAL PROTEIN 6.5 g/dL (5.8-8.1)
[2017-03-19] MEDS: PROTONIX PO SCH (05:50)
[2017-03-19] MEDS: SYNTHROID PO SCH (05:50)
[2017-03-19] MEDS: LASIX IVP SCH (06:44)
[2017-03-19] MEDS: NAMENDA PO SCH ×2 (08:23→21:36)
[2017-03-19] MEDS: FLOMAX PO SCH (08:23)
[2017-03-19] MEDS: TRADJENTA PO SCH (08:23)
[2017-03-19] MEDS: LEXAPRO PO SCH (08:24)
[2017-03-19] MEDS: ASPIRIN EC PO SCH (08:24)
[2017-03-19] MEDS: SODIUM CHLORIDE 1,000 ML IV SCH (10:14)
[2017-03-19] MEDS: HUMULIN R SUBCUT PRN ×2 (11:37→17:55)
[2017-03-19] MEDS: LIPITOR PO SCH (21:36)
[2017-03-19] MEDS: LEVEMIR SUBCUT SCH (21:37)
[2017-03-20] MEDS: LASIX TAB PO SCH (05:36)
[2017-03-20] MEDS: SYNTHROID PO SCH (05:36)
[2017-03-20] MEDS: PROTONIX PO SCH (05:36)
[2017-03-20] MEDS: HUMULIN R SUBCUT PRN ×3 (05:43→20:38)
[2017-03-20] MEDS: SODIUM CHLORIDE 1,000 ML IV SCH (07:01)
[2017-03-20] MEDS: NAMENDA PO SCH ×2 (07:59→21:40)
[2017-03-20] MEDS: ASPIRIN EC PO SCH (07:59)
[2017-03-20] MEDS: FLOMAX PO SCH (07:59)
[2017-03-20] MEDS: TRADJENTA PO SCH (07:59)
[2017-03-20] MEDS: LEXAPRO PO SCH (07:59)
[2017-03-20] MEDS: LEVEMIR SUBCUT SCH (20:38)
[2017-03-20] MEDS: CALMOSEPTINE OINTMENT TP SCH (21:40)
[2017-03-20] MEDS: LIPITOR PO SCH (21:40)
[2017-03-21] MEDS: SODIUM CHLORIDE 1,000 ML IV SCH ×2 (02:18→20:53)
[2017-03-21] MEDS: SYNTHROID PO SCH (06:06)
[2017-03-21] MEDS: PROTONIX PO SCH (06:06)
[2017-03-21] MEDS: LASIX TAB PO SCH (06:06)
[2017-03-21 06:28] LABS: BASOPHILS % (AUTO) 0.5 % (0.0-3.0); EOSINOPHILS # (AUTO) 0.2 K/ul (0.0-0.7); EOSINOPHILS % (AUTO) 2.9 % (0.0-7.0); HEMATOCRIT 34.6 % (42.0-52.0); HEMOGLOBIN 11.3 g/dl (14.0-18.0); IMMATURE GRANULOCYTE % (AUTO) 0.3 % (0.0-5.0); LYMPHOCYTES # (AUTO) 1.2 K/uL (0.60-3.4); LYMPHOCYTES % (AUTO) 19.4 (10.0-50.0); MEAN CORPUSCULAR HEMOGLOBIN 27.8 pg (27.0-31.0); MEAN CORPUSCULAR HGB CONC 32.7 (31.8-35.4); MEAN CORPUSCULAR VOLUME 85.2 fl (80.0-94.0); MONOCYTES # (AUTO) 0.5 K/uL (0.4-2.0); MONOCYTES % (AUTO) 7.7 (0-10); NEUTROPHILS # (AUTO) 4.3 K/ul (2.0-6.9); NEUTROPHILS % (AUTO) 69.2; PLATELET COUNT 172 10^3/uL (140-440); RED BLOOD COUNT 4.06 10^6/ul (4.70-6.10); WHITE BLOOD COUNT 6.25 K/ul (4.2-10.2)
[2017-03-21 06:53] LABS: ALBUMIN 2.9 g/dL (3.4-5.0); ALBUMIN/GLOBULIN RATIO 0.78; BILIRUBIN,TOTAL 0.37 mg/dL (0.00-1.20); BUN/CREATININE RATIO 22.22; CALCIUM 9.6 mg/dL (8.2-10.2); CREATININE 1.26 mg/dL (0.60-1.10); TOTAL PROTEIN 6.6 g/dL (5.8-8.1)
[2017-03-21] MEDS: NAMENDA PO SCH ×2 (08:44→20:53)
[2017-03-21] MEDS: ASPIRIN EC PO SCH (08:44)
[2017-03-21] MEDS: LEXAPRO PO SCH (08:44)
[2017-03-21] MEDS: FLOMAX PO SCH (08:45)
[2017-03-21] MEDS: CALMOSEPTINE OINTMENT TP SCH ×2 (08:45→20:53)
[2017-03-21] MEDS: TRADJENTA PO SCH (08:45)
[2017-03-21] MEDS: HUMULIN R SUBCUT PRN ×3 (12:08→20:50)
[2017-03-21] MEDS: LEVEMIR SUBCUT SCH (20:49)
[2017-03-21] MEDS: LIPITOR PO SCH (20:53)
[2017-03-22] MEDS: PROTONIX PO SCH (05:32)
[2017-03-22] MEDS: LASIX TAB PO SCH (05:32)
[2017-03-22] MEDS: SYNTHROID PO SCH (05:33)
[2017-03-22 06:15] LABS: BASOPHILS % (AUTO) 0.6 % (0.0-3.0); EOSINOPHILS # (AUTO) 0.2 K/ul (0.0-0.7); EOSINOPHILS % (AUTO) 2.6 % (0.0-7.0); HEMATOCRIT 35.5 % (42.0-52.0); HEMOGLOBIN 11.7 g/dl (14.0-18.0); IMMATURE GRANULOCYTE % (AUTO) 0.4 % (0.0-5.0); LYMPHOCYTES # (AUTO) 1.5 K/uL (0.60-3.4); LYMPHOCYTES % (AUTO) 21.9 (10.0-50.0); MEAN CORPUSCULAR HEMOGLOBIN 27.8 pg (27.0-31.0); MEAN CORPUSCULAR VOLUME 84.3 fl (80.0-94.0); MONOCYTES # (AUTO) 0.5 K/uL (0.4-2.0); MONOCYTES % (AUTO) 7.1 (0-10); NEUTROPHILS # (AUTO) 4.7 K/ul (2.0-6.9); NEUTROPHILS % (AUTO) 67.4; PLATELET COUNT 177 10^3/uL (140-440); RED BLOOD COUNT 4.21 10^6/ul (4.70-6.10); WHITE BLOOD COUNT 6.94 K/ul (4.2-10.2)
[2017-03-22 06:46] LABS: ALBUMIN/GLOBULIN RATIO 0.73; BILIRUBIN,TOTAL 0.35 mg/dL (0.00-1.20); BUN/CREATININE RATIO 22.13; CALCIUM 9.7 mg/dL (8.2-10.2); CREATININE 1.22 mg/dL (0.60-1.10); TOTAL PROTEIN 7.1 g/dL (5.8-8.1)
[2017-03-22] MEDS: LEXAPRO PO SCH (08:07)
[2017-03-22] MEDS: CALMOSEPTINE OINTMENT TP SCH ×2 (08:07→20:14)
[2017-03-22] MEDS: TRADJENTA PO SCH (08:07)
[2017-03-22] MEDS: FLOMAX PO SCH (08:08)
[2017-03-22] MEDS: ASPIRIN EC PO SCH (08:08)
[2017-03-22] MEDS: NAMENDA PO SCH ×2 (08:08→20:12)
[2017-03-22] MEDS: HUMULIN R SUBCUT PRN ×3 (11:49→20:11)
--- NOTE | 2017-03-22 12:53 | HP ---
DATE OF SERVICE: 03/18/17 (admission date 03/17) HISTORY OF PRESENT ILLNESS: This is an 86-year-old white male, who currently lives at [facility]. He was brought in by his son to the emergency room after having worsening confusion over the past couple of days, worsening edema in his lower legs and feeling somewhat short of breath. 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 No night sweats. No fever or chills. HEENT: Eyes: No visual changes. No eye pain. No eye redness. No eye discharge. ENT: No runny nose. No epistaxis. No sinus pain. No sore throat. No odynophagia. No ear pain. No congestion. RESPIRATORY: Mild cough, non productive. No hemoptysis. Mild shortness of breath in no distress. CARDIOVASCULAR: No angina symptoms. No CHF symptoms. No atypical chest pain for CAD. No palpitations. No orthopnea. GASTROINTESTINAL: No abdominal pain. No nausea or vomiting. No diarrhea or constipation. No hematemesis. No hematochezia. GENITOURINARY: No urgency. No frequency. No dysuria. No hematuria. No obstructive symptoms. No discharge. No pain. No significant abnormal bleeding. MUSCULOSKELETAL: Positive for leg weakness. No joint swelling or redness. Positive for bilateral leg edema. NEUROLOGICAL: The patient is confused but alert. No headache. No neck pain. No syncope. No seizures. No dizziness. PSYCHIATRIC: Not anxious. No depression. No suicidal thoughts. No homicidal thoughts. SKIN: Intact. No rash. No lesions. No wounds. ENDOCRINE: No unexplained weight loss. No weight gain. HEMATOLOGIC/LYMPHATIC: No anemia. No purpura. No petechiae. No prolonged or excessive bleeding. No palpable lymph nodes. PERSONAL/FAMILY/SOCIAL HISTORY: The patient currently resides at [facility]. He is a nonsmoker. Denies any alcohol or illicit drug use. No pertinent family history. MEDICATIONS: Aspirin 81 mg daily Flomax 0.4 mg daily Metformin 500 mg daily Tradgenta 5 mg daily Lexapro 10 mg daily Synthroid 50 mcg daily Protonix 40 mg daily Namenda 10 mg daily Atorvastatin 10 mg at night ALLERGIES: DANNY INHIBITORS PHYSICAL EXAMINATION: VITAL SIGNS: Temperature 95.1, heart rate 70, respirations 16, BP 151/76, pulse ox 96%. The patient is ill-appearing in no acute distress. HEENT: Head normocephalic, atraumatic. Eyes: Extraocular muscles are intact. Pupils are equal, round and reactive to light and accommodation. Ears: TMs within normal limits. No lesions. Nose appeared normal. Throat: No exudate or erythema. NECK: Supple. No JVD, no carotid bruit. No lymphadenopathy or thyromegaly. LUNGS: Diminished breath sounds bilaterally, equal and clear to auscultation. Percussion note normal. Chest symmetrical. HEART: Regular rate and rhythm. S1, S2, no S3. No murmurs, clicks or rubs. No cyanosis or clubbing. No ascites. Pulses: Dorsalis pedis and posterior tibial pulses +1 to +2 both sides. ABDOMEN: Soft. Nontender with bowel sounds active. No CVA tenderness. No mass felt. EXTREMITIES: Negative Tyler's sign. No clubbing or cyanosis. No joint swelling , no redness. The patient has +1 pitting edema bilateral lower extremities. Full range of motion of all extremities, equal. NEUROLOGIC: The patient is alert however oriented to person not place or time. No focal deficit. Cranial nerves II through XII are grossly intact. No headache , no double vision or headache. SKIN: Not dry. Intact. Turgor - normal. LYMPHATIC: No palpable lymph nodes/no lymphedema. MUSCULOSKELETAL: Normal joints with no swelling. Muscle tone is normal. PERTINENT LABS: BNP 639, urine yellow-clear, negative leuks, negative bili, negative nitrites, negative blood. Hemoglobin 10.7, hematocrit 31.6, platelets 162, white count 7.93. Sodium 142, potassium 3.8, c02 25, BUN 25, creatinine 1.64, glucose 144. Total bili 0.38, AST 8, ALT 7, Alkaline phosphatase 50, total CK 20, troponin less than 0.01. Total protein 6.8, albumin 3.1, globulin 3.7, influenza A and B are negative. CT of the brain shows no acute intracranial findings, changes consistent with microvascular disease. Chest x-ray reveals pulmonary edema and vascular congestion. ASSESSMENT: 1. ACUTE CONGESTIVE HEART FAILURE 2. HYPERTENSION 3. ACUTE CONFUSION 4. SHORTNESS OF BREATH PLAN: 1. Admit to the floor 2. Routine telemetry orders 3. 40 mg IV Lasix daily 4. CBC, CMP daily 5. Echocardiogram 6. Daily weights 7. Low sodium diet 8. Elevate the legs 9. Continue home medications 10. Sliding scale coverage 11. EKG 12. Will follow closely TIME SPENT: More than 70 minutes. BRIAD
[2017-03-22] MEDS: LEVEMIR SUBCUT SCH (20:12)
[2017-03-22] MEDS: LIPITOR PO SCH (20:12)
[2017-03-23] MEDS: SODIUM CHLORIDE 1,000 ML IV SCH (00:53)
[2017-03-23 05:28] LABS: BASOPHILS % (AUTO) 0.4 % (0.0-3.0); EOSINOPHILS # (AUTO) 0.1 K/ul (0.0-0.7); EOSINOPHILS % (AUTO) 1.5 % (0.0-7.0); HEMATOCRIT 36.9 % (42.0-52.0); HEMOGLOBIN 12.4 g/dl (14.0-18.0); IMMATURE GRANULOCYTE % (AUTO) 0.4 % (0.0-5.0); LYMPHOCYTES # (AUTO) 1.7 K/uL (0.60-3.4); LYMPHOCYTES % (AUTO) 21.1 (10.0-50.0); MEAN CORPUSCULAR HEMOGLOBIN 28.2 pg (27.0-31.0); MEAN CORPUSCULAR HGB CONC 33.6 (31.8-35.4); MEAN CORPUSCULAR VOLUME 83.9 fl (80.0-94.0); MONOCYTES # (AUTO) 0.6 K/uL (0.4-2.0); NEUTROPHILS # (AUTO) 5.5 K/ul (2.0-6.9); NEUTROPHILS % (AUTO) 69.6; PLATELET COUNT 189 10^3/uL (140-440); WHITE BLOOD COUNT 7.83 K/ul (4.2-10.2)
[2017-03-23] MEDS: PROTONIX PO SCH (05:33)
[2017-03-23] MEDS: LASIX TAB PO SCH (05:33)
[2017-03-23] MEDS: SYNTHROID PO SCH (05:33)
[2017-03-23 05:47] LABS: ALBUMIN 3.1 g/dL (3.4-5.0); ALBUMIN/GLOBULIN RATIO 0.76; ANION GAP 12.5; BILIRUBIN,TOTAL 0.33 mg/dL (0.00-1.20); BUN/CREATININE RATIO 21.92; CALCIUM 9.9 mg/dL (8.2-10.2); CREATININE 1.14 mg/dL (0.60-1.10); POTASSIUM 3.5 mmol/L (3.5-5.1); TOTAL PROTEIN 7.2 g/dL (5.8-8.1)
[2017-03-23] MEDS: ASPIRIN EC PO SCH (08:34)
[2017-03-23] MEDS: NAMENDA PO SCH (08:35)
[2017-03-23] MEDS: FLOMAX PO SCH (08:35)
[2017-03-23] MEDS: LEXAPRO PO SCH (08:35)
[2017-03-23] MEDS: TRADJENTA PO SCH (08:35)
[2017-03-23] MEDS: CALMOSEPTINE OINTMENT TP SCH (09:12)
[2017-03-23 10:15] VITALS: BP 136/63; TEMP 97.6
--- NOTE | 2017-03-23 10:35 | CM.DICTOOL ---
ADMISSION: 03/17/17 16:39 DISCHARGE: 03/23/17 DATE OF SERVICE: 03/23/17 FINAL DIAGNOSIS CONGESTIVE HEART FAILURE, ACUTE ON CHRONIC BILATERAL LOWER EXTREMITY EDEMA INCREASING CONFUSION CAD S/P STENT APPLICATION HYPERTENSION DYSLIPIDEMIA BRADYCARDIA DYSRHYTHMIA BY HISTORY HYPOTHYROIDISM CHRONIC KIDNEY DISEASE ANEMIA VITAMIN B12 DEFICIENCY DM, TYPE 2 METABOLIC SYNDROME BPH ANXIETY ALZHEIMER'S TYPE DEMENTIA LEFT LITTLE TOE AMPUTATION D/T OSTEOMYELITIS, DR, BURNETT ATAXIA LAST VITALS Temp Pulse Resp BP Pulse Ox 98.0 F 60 16 149/76 H 95 03/23/17 05:57 03/23/17 05:57 03/23/17 05:57 03/23/17 05:57 03/23/17 05:57 ACTIVE MEDICATIONS Acetaminophen (Tylenol) 650 mg PO Q4H PRN PRN Reason: Mild Pain Aspirin (Aspirin Ec) 81 mg PO DAILYWM [facility] Last Admin: 03/23/17 08:34 Dose: 81 mg Atorvastatin Calcium (Lipitor) 10 mg PO BEDTIME [facility] Last Admin: 03/22/17 20:12 Dose: 10 mg Escitalopram Oxalate (Lexapro) 10 mg PO DAILY [facility] Last Admin: 03/23/17 08:35 Dose: 10 mg Furosemide (Lasix Tab) 40 mg PO QDAC [facility] (INCREASED DOSE FROM 20 MG PO DAILY) Last Admin: 03/23/17 05:33 Dose: 40 mg Insulin Detemir (Levemir) 20 unit SUBCUT BEDTIME [facility] Last Admin: 03/22/17 20:12 Dose: 20 unit Levothyroxine Sodium (Synthroid) 50 mcg PO QDAC [facility] Last Admin: 03/23/17 05:33 Dose: 50 mcg Linagliptin (Tradjenta) 5 mg PO DAILY [facility] Last Admin: 03/23/17 08:35 Dose: 5 mg Memantine (Namenda) 10 mg PO BID [facility] Last Admin: 03/23/17 08:35 Dose: 10 mg Metformin HCl (Glucophage) 500 mg PO DAILY [facility] Pantoprazole Sodium (Protonix) 40 mg PO QDAC [facility] Last Admin: 03/23/17 05:33 Dose: 40 mg Tamsulosin HCl (Flomax) 0.4 mg PO DAILY [facility] Last Admin: 03/23/17 08:35 Dose: 0.4 mg ALLERGIES DANNY Inhibitors Allergy (Verified 03/17/17 13:43) perindopril erbumine [From Aceon] Adverse Reaction (Verified 03/17/17 13:43) NEW PRESCRIPTIONS: LASIX 40 MG, TAKE ONE TABLET BY MOUTH EVERY MORNING ON AN EMPTY STOMACH K-DUR 20 MEQ, TAKE ONE TABLET BY MOUTH DAILY SMOKING: NEVER SMOKER DISEASE SPECIFIC EDUCATION: CONGESTIVE HEART FAILURE HOME MEDICATIONS NEW PRESCRIPTIONS ACTIVITY FOLLOW UP LAB REVIEW: 03/23/17 04:18 03/23/17 04:18 03/23/17 04:18: Sodium 141, Potassium 3.5, Chloride 104, Carbon Dioxide 28, Anion Gap 12.5, BUN 25 H, Creatinine 1.14 H, Estimated GFR (MDRD) 61.00, BUN/ Creatinine Ratio 21.92, Glucose 110, Calcium 9.9, Total Bilirubin 0.33, AST 9 L , ALT 8 L, Alkaline Phosphatase 46 L, Total Protein 7.2, Albumin 3.1 L, Globulin 4.1, Albumin/Globulin Ratio 0.76 03/23/17 04:18: WBC 7.83, RBC 4.40 L, Hgb 12.4 L, Hct 36.9 L, MCV 83.9, MCH 28.2 , MCHC 33.6, RDW Coeff of Lexy 14.7, Plt Count 189, Immature Gran % (Auto) 0.4, Neut % (Auto) 69.6, Lymph % (Auto) 21.1, [place] % (Auto) 7.0, Eos % (Auto) 1.5, Baso % (Auto) 0.4, Immature Gran # (Auto) 0.0, Neut # 5.5, Lymph # 1.7, [place] # 0.6, Eos # 0.1, Baso # 0.0 PLAN: DISCHARGE TO [facility] TODAY RETURN TO SEE DR. PARRISH IN HIS OFFICE ON 03/30/17 AT 11:15 A.M. RESUME YOUR HOME MEDICATIONS PER LIST PROVIDED BY THE NURSING STAFF PLEASE NOTE THE INCREASE IN YOUR LASIX DOSE TO 40 MG BY MOUTH EVERY MORNING NEW PRESCRIPTIONS LASIX 40 MG, TAKE ONE TABLET BY MOUTH EVERY MORNING ON AN EMPTY STOMACH K-DUR 20 MEQ, TAKE ONE TABLET BY MOUTH DAILY ACTIVITY GET PLENTY OF REST AT HOME. GRADUALLY INCREASE YOUR ACTIVITY LEVEL ACCORDING TO YOUR TOLERATION DIET CONSISTENT CARBS SUMMARY THE PATIENT RESIDES AT AN ASSISTED LIVING FACILITY IN [place], [place]; [facility]. HE DESIRES TO RETURN THERE AT DISCHARGE. HE HAS A ROLLING WALKER AND GLUCOMETER AND TESTING SUPPLIES AT HOME NOW. HE DOES NOT UTILIZE HOME HEALTH. THE ASSISTED LIVING PROVIDES LIGHT HOMEMAKING DUTIES FOR HIM. HE HAS BEEN INDEPENDENT WITH ADL'S OTHERWISE. CURRENT CODE STATUS: DO NOT RESUSCITATE CYNDY HANDLEY APRN JESSICA PARRISH M.D.
--- NOTE | 2017-03-23 11:12 | PCM.PROG ---
Attending Provider: ATTENDING PROVIDER: Dr. JESSICA PARRISH This patient is seen with Sendy Lantigua, Nurse Practitioner. DATE OF SERVICE: 03/23/17 SUBJECTIVE: This 86 year old WHITE/ M was hospitalized 03/17/17. The patient is alert, lying in bed. The patient is ready to go home. He is still confused off and on. Swelling is much better. He is no longer short of breath. He is ready to go back to assisted living. REVIEW OF SYSTEMS: CONSTITUTIONAL: No night sweats. No fatigue, malaise, lethargy. No fever or chills. HEENT: Eyes: No visual changes. No eye pain. No eye discharge. ENT: No runny nose. No epistaxis. No sinus pain. No odynophagia. No congestion. RESPIRATORY: No cough, no congestion. No hemoptysis. No shortness of breath. CARDIOVASCULAR: No angina symptoms. No CHF symptoms. No atypical chest pain for CAD. No palpitations. No orthopnea.. GASTROINTESTINAL: No abdominal pain. No nausea or vomiting. No diarrhea or constipation. No hematemesis. No hematochezia. GENITOURINARY: No urgency. No frequency. No dysuria. No hematuria. No obstructive symptoms. No discharge. No pain. No significant abnormal bleeding. MUSCULOSKELETAL: No musculoskeletal pain; no joint swelling. NEUROLOGICAL: Positive for bouts of confusion. No headache. No neck pain. No syncope. No seizures. No dizziness. PSYCHIATRIC: Not anxious. No depression. No suicidal thoughts. No homicidal thoughts. SKIN: No rash. No lesions. No wounds. ENDOCRINE: No unexplained weight loss. No weight gain. HEMATOLOGIC/LYMPHATIC: No anemia. No purpura. No petechiae. No prolonged or excessive bleeding. No palpable lymph nodes. PHYSICAL EXAMINATION: GENERAL: The patient is awake, alert and oriented, lying in bed in no distress. VITAL SIGNS: Temperature 98.0 F, Pulse 60, Respiratory Rate 16, BP 149/76, Pulse Ox 95% HEENT: Head normocephalic, atraumatic. Eyes: Extraocular muscles are intact. Pupils are equal, round and reactive to light and accommodation. Ears: No lesions. Nose appeared normal. Throat: No exudate or erythema. NECK: Supple. No JVD, no carotid bruit. No lymphadenopathy or thyromegaly. LUNGS: Diminished breath sounds bilaterally. Clear to auscultation. Percussion note normal. Chest symmetrical. HEART: S1, S2, no S3. No murmurs. No cyanosis or clubbing. No ascites. Pulses: Dorsalis pedis and posterior tibial pulses +1 to +2 both sides. ABDOMEN: Soft. Non-tender. Bowel sounds active. No CVA tenderness. No mass felt. EXTREMITIES: No edema. Full range of motion of all extremities, equal. NEUROLOGIC: No focal deficit. Cranial nerves II through XII are grossly intact. No headache, no double vision or headache. SKIN: Not dry. Intact. Turgor-normal. LYMPHATIC: No palpable lymph nodes/no lymphedema. MUSCULOSKELETAL: Normal joints with no swelling. Muscle tone is normal. LAB REVIEW: 03/23/17 04:18 03/23/17 04:18 03/23/17 04:18: Sodium 141, Potassium 3.5, Chloride 104, Carbon Dioxide 28, Anion Gap 12.5, BUN 25 H, Creatinine 1.14 H, Estimated GFR (MDRD) 61.00, BUN/ Creatinine Ratio 21.92, Glucose 110, Calcium 9.9, Total Bilirubin 0.33, AST 9 L , ALT 8 L, Alkaline Phosphatase 46 L, Total Protein 7.2, Albumin 3.1 L, Globulin 4.1, Albumin/Globulin Ratio 0.76 03/23/17 04:18: WBC 7.83, RBC 4.40 L, Hgb 12.4 L, Hct 36.9 L, MCV 83.9, MCH 28.2 , MCHC 33.6, RDW Coeff of Lexy 14.7, Plt Count 189, Immature Gran % (Auto) 0.4, Neut % (Auto) 69.6, Lymph % (Auto) 21.1, [place] % (Auto) 7.0, Eos % (Auto) 1.5, Baso % (Auto) 0.4, Immature Gran # (Auto) 0.0, Neut # 5.5, Lymph # 1.7, [place] # 0.6, Eos # 0.1, Baso # 0.0 ASSESSMENT: 1. Bilateral leg edema, resolved 2. Acute CHF, resolved 3. Diabetes mellitus, Type 2 PLAN: 1. Discharge back to [facility] 2. Lasix 40 mg daily 3. Potassium 20 mEq daily Plan and coordination of the patient's care discussed in the presence of Radiologic Technology Teacher and nurse. CONDITION: Stable SCRIBED BY: BRITTANY MARIN Instrumentation Engineering Technician scribed while in presence of service performed by Dr. Parrish/Sendy Lantigua APRN on 03/23/17 ([id number])
[2017-03-23] MEDS: HUMULIN R SUBCUT PRN (11:35)
--- NOTE | 2017-03-24 07:37 | ECHO2D ---
Date of Exam: 03/24/17 Ordering Physician: JESSICA PARRISH Room #: [id number] Reason for Echo: CONGESTIVE HEART FAILURE M-Mode Normal Adult Results LV Dimensions Normal Adult Results AoV Opening excursions >1.6 >1.6 LVEDD-base- 3.5-5.8 6.4 Ao root dimensions 2.0-3.7 3.6 LVESD-base- 3.1-4.6 L. Atrium dimensions 1.9-3.8 5.7 Post. Wall thickness 0.8-1.1 1.2 IV septum (thickness) 0.7-1.2 1.3 Post. Wall excursion 0.72-1.3 NORMAL Septal motion NORMAL Systolic motion R. Ventricular cavity 1.5-2.0 NORMAL LVEF 60% 45% Paradoxical septal wall motion NORMAL 2-D : MILDLY HYPOKINETIC LEFT VENTRICLE, NORMAL VALVES, NO EFFUSION, NO THROMBUS , ENLARGED LEFT VENTRICLE AND LEFT ATRIAL CAVITIES M-MODE: MV: NORMAL AV: NORMAL TV: NORMAL PV: CHAMBER SIZE: ENLARGED LEFT ATRIAL AND LEFT VENTRICLE CAVITIES WALL MOTION: HYPOKINETIC LEFT VENTRICLE PERICARDIUM: NORMAL INTERPRETATION: 1. LEFT VENTRICULAR HYPERTROPHY 2. ENLARGED LEFT VENTRICLE AND LEFT ATRIAL CAVITIES 3. MILDLY HYPOKINETIC LEFT VENTRICLE, EJECTION FRACTION 44% 4. NORMAL VALVES MTDD
--- NOTE | 2017-03-24 13:58 | PN ---
DATE OF SERVICE: 03/17/17 ADMITTING NOTE SUBJECTIVE: The patient was seen in the emergency room. Dr. Ramsey was president financial institution he called me with the patient's arrival. The patient has complaints of bilateral leg edema. In fact initially we got a call at the office from the senior living and then the senior living staff was instructed to send patient to the emergency room. The patient was not in distress at all. Both legs swelling was +2 to +3 pitting edema. The son was present and he did not want any heroic measure or any exotic tests. He said "help my dad to feel better and comfort measures with resolution of his leg edema." The patient's labs test were acceptable. His chest x-ray showed possibility to CHF with cardiomegaly and bilateral blunting of costophrenic angles raising the possibility of effusion. Considering the patient 's history of coronary artery disease, cardiomegaly, leg edema the patient is presumed to have early CHF. He is a very poor historian. REVIEW OF SYSTEMS: CONSTITUTIONAL: No night sweats. No fatigue, malaise, lethargy. No fever or chills. HEENT: Eyes: No visual changes. No eye pain. No eye discharge. ENT: No runny nose. No epistaxis. No sinus pain. No sore throat. No odynophagia. No congestion. RESPIRATORY: No cough, no congestion. No hemoptysis. No shortness of breath. CARDIOVASCULAR: No angina symptoms. No CHF symptoms. No atypical chest pain for CAD. No palpitations. No orthopnea. GASTROINTESTINAL: No abdominal pain. No nausea or vomiting. No diarrhea or constipation. No hematemesis. No hematochezia. GENITOURINARY: No urgency. No frequency. No dysuria. No hematuria. No obstructive symptoms. No discharge. No pain. No significant abnormal bleeding. MUSCULOSKELETAL: No musculoskeletal pain; no joint swelling. NEUROLOGICAL: No headache. No neck pain. No syncope. No seizures. No dizziness. PSYCHIATRIC: Not anxious. No depression. No suicidal thoughts. No homicidal thoughts. SKIN: No rash. No lesions. No wounds. ENDOCRINE: No unexplained weight loss. No weight gain. HEMATOLOGIC/LYMPHATIC: No anemia. No purpura. No petechiae. No prolonged or excessive bleeding. No palpable lymph nodes. PHYSICAL EXAMINATION: HEENT: Head normocephalic, atraumatic. Eyes: Extraocular muscles are intact. Pupils are equal, round and reactive to light and accommodation. Ears: No lesions. Nose appeared normal. Throat: No exudate or erythema. NECK: Supple. JVP 1cm, no carotid bruit. No lymphadenopathy or thyromegaly. LUNGS: Decreased breath sounds with few basilar creps. Clear to auscultation. Percussion note normal. Chest symmetrical. HEART: S1, S2, questionable S3. No murmurs. No cyanosis or clubbing. No ascites. Pulses: Dorsalis pedis and posterior tibial pulses +1 to +2 both sides. ABDOMEN: Soft. Nontender. Bowel sounds active. No CVA tenderness. No mass felt. EXTREMITIES: +3 pitting edema. Full range of motion of all extremities, equal. NEUROLOGIC: No focal deficit. Cranial nerves II through XII are grossly intact. No headache, no double vision or headache. SKIN: Not dry. Intact. Turgor - normal. LYMPHATIC: No palpable lymph nodes/no lymphedema. MUSCULOSKELETAL: Normal joints with no swelling. Muscle tone is normal. ASSESSMENT: 1. Bilateral leg edema, combination of dependant edema, venous insufficiency and some contribution from CHF. 2. Severe peripheral arterial disease 3. Coronary artery disease 4. Severe Dementia, he was able recognize me and shook hands with me. He is not oriented to place or time. PLAN: 1. Elevate the extremities 2. IV Lasix 3. Telemetry 4. EKG 5. Continue all the medications 6. The patient is DNR CONDITION: Stable TIME SPENT: More than 30 minutes. Plan and coordination of the patient's care discussed in the presence of nurse. KAMRYN
--- NOTE | 2017-03-24 15:02 | PN ---
DATE OF SERVICE: 03/19/17 SUBJECTIVE: The patient is examined while lying in bed. He is still somewhat confused. Weakness has improved. He is no longer short of breath, has been eating well. REVIEW OF SYSTEMS: CONSTITUTIONAL: No night sweats. No fatigue, malaise, lethargy. No fever or chills. HEENT: Eyes: No visual changes. No eye pain. No eye discharge. ENT: No runny nose. No epistaxis. No sinus pain. No sore throat. No odynophagia. No congestion. RESPIRATORY: No cough, no congestion. No hemoptysis. No shortness of breath. CARDIOVASCULAR: No angina symptoms. No CHF symptoms. No atypical chest pain for CAD. No palpitations. No orthopnea. GASTROINTESTINAL: No abdominal pain. No nausea or vomiting. No diarrhea or constipation. No hematemesis. No hematochezia. GENITOURINARY: No urgency. No frequency. No dysuria. No hematuria. No obstructive symptoms. No discharge. No pain. No significant abnormal bleeding. MUSCULOSKELETAL: No musculoskeletal pain; no joint swelling. NEUROLOGICAL: Positive for confusion. No headache. No neck pain. No syncope. No seizures. No dizziness. PSYCHIATRIC: Not anxious. No depression. No suicidal thoughts. No homicidal thoughts. SKIN: No rash. No lesions. No wounds. ENDOCRINE: No unexplained weight loss. No weight gain. HEMATOLOGIC/LYMPHATIC: No anemia. No purpura. No petechiae. No prolonged or excessive bleeding. No palpable lymph nodes. PHYSICAL EXAMINATION: HEENT: Head normocephalic, atraumatic. Eyes: Extraocular muscles are intact. Pupils are equal, round and reactive to light and accommodation. Ears: No lesions. Nose appeared normal. Throat: No exudate or erythema. NECK: Supple. No JVD, no carotid bruit. No lymphadenopathy or thyromegaly. LUNGS: Diminished breath sounds, equal and clear bilaterally to auscultation. Percussion note normal. Chest symmetrical. HEART: S1, S2, no S3. No murmurs. No cyanosis or clubbing. No ascites. Pulses: Dorsalis pedis and posterior tibial pulses +1 to +2 both sides. ABDOMEN: Soft. Nontender. Bowel sounds active. No CVA tenderness. No mass felt. EXTREMITIES: No edema in bilateral lower extremities. Full range of motion of all extremities, equal. NEUROLOGIC: No focal deficit. Cranial nerves II through XII are grossly intact. No headache, no double vision or headache. SKIN: Not dry. Intact. Turgor - normal. LYMPHATIC: No palpable lymph nodes/no lymphedema. MUSCULOSKELETAL: Normal joints with no swelling. Muscle tone is normal. ASSESSMENT: 1. BILATERAL LEG EDEMA WHICH HAS IMPROVED 2. ACUTE CHF IMPROVING 3. CHRONIC KIDNEY DISEASE 4. 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 Make Lasix 40 mg p.o. daily 2. Continue other medications 3. Sliding scale coverage 4. CBC, CMP daily 5. Echo yesterday TIME SPENT: More than 30 minutes. The patient was seen by Dr. Monae/ Sendy Barriga APRN Plan and coordination of the patient's care discussed in the presence of nurse. KAMRYN
--- NOTE | 2017-03-24 15:04 | PN ---
DATE OF SERVICE: 03/23/17 SUBJECTIVE: 86 year old white male hospitalized with CHF type of picture with leg edema. Leg edema has practically resolved. No evidence of CHF clinically. PHYSICAL EXAMINATION: HEENT: Head normocephalic, atraumatic. Eyes: Extraocular muscles are intact. Pupils are equal, round and reactive to light and accommodation. Ears: No lesions. Nose appeared normal. Throat: No exudate or erythema. NECK: Supple. No JVD, no carotid bruit. No lymphadenopathy or thyromegaly. LUNGS: Decreased breath sounds but clear to auscultation. Percussion note normal. Chest symmetrical. HEART: S1, S2, no S3. No murmurs. No cyanosis or clubbing. No ascites. Pulses: Dorsalis pedis and posterior tibial pulses +1 to +2 both sides. ABDOMEN: Soft. Nontender. Bowel sounds active. No CVA tenderness. No mass felt. EXTREMITIES: Practically no pedal edema. Full range of motion of all extremities, equal. NEUROLOGIC: No focal deficit. Cranial nerves II through XII are grossly intact. No headache, no double vision or headache. Demented. Alert but most of the time confused. SKIN: Not dry. Intact. Turgor - normal. LYMPHATIC: No palpable lymph nodes/no lymphedema. MUSCULOSKELETAL: Normal joints with no swelling. Muscle tone is normal. ASSESSMENT: 1. 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 PLAN: 1. The patient will be discharged home to Assisted Living CONDITION: Stable. PROGNOSIS: Poor The patient was seen and examined with Nurse Practitioner and Health Management Consultant. TIME SPENT: More than 30 minutes. Plan and coordination of the patient's care discussed in the presence of nurse. KAMRYN
--- NOTE | 2017-03-24 15:05 | PN ---
03/17/17: Level 5 03/18/17: Intermediate 03/19/17: Intermediate 03/20/17: Intermediate 03/21/17: Intermediate 03/22/17: Brief 03/23/17: D as in discharge MTDD
--- NOTE | 2017-03-25 11:16 | PN ---
DATE OF SERVICE: 03/21/17 SUBJECTIVE: 86 year old white male hospitalized with CHF. The patient had leg edema 3+ and some evidence by x-ray of chest pulmonary congestion. The patient is laying flat , confused at times. He is oriented to person and maybe place but most of the time he is confused but alert. REVIEW OF SYSTEMS: CONSTITUTIONAL: No night sweats. No fatigue, malaise, lethargy. No fever or chills. HEENT: Eyes: No visual changes. No eye pain. No eye discharge. ENT: No runny nose. No epistaxis. No sinus pain. No sore throat. No odynophagia. No congestion. RESPIRATORY: No cough, no congestion. No hemoptysis. No shortness of breath. CARDIOVASCULAR: No angina symptoms. No CHF symptoms. No atypical chest pain for CAD. No palpitations. No orthopnea. No PND. GASTROINTESTINAL: No abdominal pain. No nausea or vomiting. No diarrhea or constipation. No hematemesis. No hematochezia. GENITOURINARY: No urgency. No frequency. No dysuria. No hematuria. No obstructive symptoms. No discharge. No pain. No significant abnormal bleeding. MUSCULOSKELETAL: No musculoskeletal pain; no joint swelling. NEUROLOGICAL: No headache. No neck pain. No syncope. No seizures. No dizziness. PSYCHIATRIC: Not anxious. No depression. No suicidal thoughts. No homicidal thoughts. SKIN: No rash. No lesions. No wounds. ENDOCRINE: No unexplained weight loss. No weight gain. HEMATOLOGIC/LYMPHATIC: No anemia. No purpura. No petechiae. No prolonged or excessive bleeding. No palpable lymph nodes. PHYSICAL EXAMINATION: VITAL SIGNS: Temperature 97.7, pulse 60, respiratory rate 13, blood pressure 113 /50 and pulse ox 98%. HEENT: Head normocephalic, atraumatic. Eyes: Extraocular muscles are intact. Pupils are equal, round and reactive to light and accommodation. Ears: No lesions. Nose appeared normal. Throat: No exudate or erythema. NECK: Supple. No JVD, no carotid bruit. No lymphadenopathy or thyromegaly. LUNGS: Decreased breath sounds but clear to auscultation. Percussion note normal. Chest symmetrical. HEART: S1, S2, no S3. No murmurs. No cyanosis or clubbing. No ascites. Pulses: Dorsalis pedis and posterior tibial pulses +1 to +2 both sides. ABDOMEN: Soft. Nontender. Bowel sounds active. No CVA tenderness. No mass felt. EXTREMITIES: No edema. Full range of motion of all extremities, equal. NEUROLOGIC: No focal deficit. Cranial nerves II through XII are grossly intact. No headache, no double vision or headache. SKIN: Not dry. Intact. Turgor - normal. LYMPHATIC: No palpable lymph nodes/no lymphedema. MUSCULOSKELETAL: Normal joints with no swelling. Muscle tone is normal. LABS: Hgb 11.3, hct 34, WBC 6,000 normal differential, creatinine 1.3, BUN 26. ASSESSMENT: 1. CHF seems to have resolved 2. Leg edema, resolved 3. Dementia, persists 4. Peripheral arterial disease 5. Coronary artery disease CONDITION: Stable TIME SPENT: More than 30 minutes. ADDENDUM: The daughter had discussion with her. I met her in the hospital. The patient's condition it stable. He is feeling better. He recognized me right away. He had an echo done which showed dilated left ventricle with ejection fraction 44%. LA cavity is markedly enlarged. The valves are normal. The patient has dilated ischemia cardiomyopathy. Explained to the daughter that the patient has severe coronary artery disease, dilated cardiomyopathy, dementia which is vascular, severe peripheral arterial disease and his prognosis is poor. Plan and coordination of the patient's care discussed in the presence of nurse. KAMRYN
--- NOTE | 2017-03-25 13:41 | PN ---
DATE OF SERVICE: 03/22/17 SUBJECTIVE: 86 year old white male hospitalized with CHF and pulmonary congestion. The patient's leg edema has practically resolved. He has no symptoms of CHF. REVIEW OF SYSTEMS: CONSTITUTIONAL: No night sweats. No fatigue, malaise, lethargy. No fever or chills. HEENT: Eyes: No visual changes. No eye pain. No eye discharge. ENT: No runny nose. No epistaxis. No sinus pain. No sore throat. No odynophagia. No congestion. RESPIRATORY: No cough, no congestion. No hemoptysis. No shortness of breath. CARDIOVASCULAR: No angina symptoms. No CHF symptoms. No atypical chest pain for CAD. No palpitations. No orthopnea. GASTROINTESTINAL: No abdominal pain. No nausea or vomiting. No diarrhea or constipation. No hematemesis. No hematochezia. GENITOURINARY: No urgency. No frequency. No dysuria. No hematuria. No obstructive symptoms. No discharge. No pain. No significant abnormal bleeding. MUSCULOSKELETAL: No musculoskeletal pain; no joint swelling. NEUROLOGICAL: No headache. No neck pain. No syncope. No seizures. No dizziness. PSYCHIATRIC: Not anxious. No depression. No suicidal thoughts. No homicidal thoughts. SKIN: No rash. No lesions. No wounds. ENDOCRINE: No unexplained weight loss. No weight gain. HEMATOLOGIC/LYMPHATIC: No anemia. No purpura. No petechiae. No prolonged or excessive bleeding. No palpable lymph nodes. PHYSICAL EXAMINATION: GENERAL: The patient is confused but alert. VITAL SIGNS: Temperature 97.8, pulse 59, respiratory rate 17, blood pressure 137/73 and pulse ox 97% HEENT: Head normocephalic, atraumatic. Eyes: Extraocular muscles are intact. Pupils are equal, round and reactive to light and accommodation. Ears: No lesions. Nose appeared normal. Throat: No exudate or erythema. NECK: Supple. No JVP, no carotid bruit. No lymphadenopathy or thyromegaly. LUNGS: Decreased breath sounds but clear to auscultation. Percussion note normal. Chest symmetrical. HEART: S1, S2, no S3. No murmurs. No cyanosis or clubbing. No ascites. Pulses: Dorsalis pedis and posterior tibial pulses +1 to +2 both sides. ABDOMEN: Soft. Nontender. Bowel sounds active. No CVA tenderness. No mass felt. EXTREMITIES: Trace edema. Full range of motion of all extremities, equal. NEUROLOGIC: No focal deficit. Cranial nerves II through XII are grossly intact. No headache, no double vision or headache. Confused but he is alert. He is disoriented to time, place and person. He didn't recognize me. SKIN: Not dry. Intact. Turgor - normal. LYMPHATIC: No palpable lymph nodes/no lymphedema. MUSCULOSKELETAL: Normal joints with no swelling. Muscle tone is normal. LABS: Hgb 11.7, hct 35, WBC 6,900 normal differential, creatinine 1.2, BUN 27. ASSESSMENT: 1. CHF seems to have resolved 2. Leg edema, resolved 3. Dementia, persists 4. Peripheral arterial disease 5. Coronary artery disease PLAN: 1. Keep giving IV Lasix 2. Keep the legs up 3. CHF discussed PROGNOSIS: Poor CONDITION: Stable. TIME SPENT: More than 30 minutes. Plan and coordination of the patient's care discussed in the presence of nurse. KAMRYN
--- NOTE | 2017-03-26 07:12 | DS ---
DATE OF SERVICE: 03/23/17 FINAL DIAGNOSIS: 1. CONGESTIVE HEART FAILURE, ACUTE ON CHRONIC 2. BILATERAL LOWER EXTREMITY EDEMA 3. INCREASING CONFUSION 4. CAD STATUS POST STENT APPLICATION 5. HYPERTENSION 6. DYSLIPIDEMIA 7. BRADYCARDIA DYSRHYTHMIA BY HISTORY 8. HYPOTHYROIDISM 9. CHRONIC KIDNEY DISEASE 10. ANEMIA 11. VITAMIN B12 DEFICIENCY 12. DIABETES MELLITUS TYPE 2 13. METABOLIC SYNDROME 14. BPH 15. 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 BURNETT 18. ATAXIA DISCHARGE INSTRUCTIONS: Followup appointment: Dr. Monae in his office on 03/30/17 at 11:15 a.m. Discharge to [facility]. MEDICATIONS AT DISCHARGE: Tylenol 650 mg p.o. q.4h p.r.n. Aspirin 81 mg p.o. daily with meal [facility] Lipitor 10 mg p.o.bedtime [facility] Lexapro 10 mg p.o. daily [facility] Lasix 40 mg p.o. q.d a.c. CAMRON (increased dose from 20 mg p.o. daily) Levemir subcut bedtime CAM[facility] Synthroid 50 mcg p.o. q.d. a.c. CAMRON Tradjenta 5 mg p.o. daily [facility] Namenda 10 mg p.o. b.i.d. CAMRNO Glucophage 500 mg p.o. daily [facility] Protonix 40 mg p.o. q.d. a.c. [facility] Flomax 0.4 mg p.o.d aily [facility] NEW PRESCRIPTIONS: Lasix 40 mg take one tablet by mouth every morning on an empty stomach K-Dur 20 mEq take one tablet by mouth daily DIET INSTRUCTIONS: Consistent carbs ACTIVITY: Get plenty of rest at home. Gradually increase your activity level according to your toleration. SMOKING: Never smoker DISEASE SPECIFIC EDUCATION: Congestive heart failure Home medications New prescriptions Activity Follow up HOSPITAL COURSE: This is an 86-year-old white male who has been residing at [facility]. He was brought in to the emergency room by family member after having experienced increasing leg edema over the past couple of days with mild shortness of breath. Chest x-ray revealed cardiomegaly along with vascular congestion. He was admitted, placed on 40 mg of Lasix IV daily. Within 48 hours his shortness of breath had improved and his leg swelling had improved. He did experience some acute confusion while in the hospital. UA was normal. He had no UTI and it was thought that this was just due to change of place and he does have a diagnosis of dementia. Kidney function has remained stable with the use of IV diuretics. After two days the IV Lasix was discontinued and he was placed on Lasix 40 mg p.o. daily. He had previously only been on Lasix 20 mg daily. He was instructed to elevate his legs. Over the next several days his acute confusion slowly improved. Dr. Monae performed a 2D echo which showed dilated cardiomegaly. His labs had remained stable. Today, on day of discharge, hemoglobin 12.4, hematocrit 36.9, white count 7.83, platelets 189. Sodium 141, potassium 3.5, BUN 25, creatinine 1.14. His Glucophage was held due to kidney function initially. He will go back home and restart this as kidney function has improved. Again, he will go back to [facility] on an increased dose of Lasix 40 mg daily along with potassium 20 mEq daily. Low sodium diet has been discussed. We will restart his Metformin. He is also on Levemir at night. His vital signs have been controlled. Temperature 98, heart rate 60, respirations 16 , pulse ox 95% on room air, Blood Pressure 140/76. The patient had significantly improved over the past several days. Acute on chronic heart failure symptoms have resolved. Leg edema has resolved. He has no edema as of today and again is not short of breath at all. He is 95% on room air. We will followup with him in the office next week. TIME SPENT: More than 60 minutes. KAMRYN
--- NOTE | 2017-03-26 11:04 | PN ---
DATE OF SERVICE: 03/20/17 SUBJECTIVE: 86 year old white male hospitalized with CHF type of symptoms with leg edema +3 pitting. Leg edema has practically has subsided and there is no evidence of CHF at present time. He is laying flat and seem to be alert but confused and oriented to person. REVIEW OF SYSTEMS: CONSTITUTIONAL: No night sweats. No fatigue, malaise, lethargy. No fever or chills. HEENT: Eyes: No visual changes. No eye pain. No eye discharge. ENT: No runny nose. No epistaxis. No sinus pain. No sore throat. No odynophagia. No congestion. RESPIRATORY: No cough, no congestion. No hemoptysis. No shortness of breath. CARDIOVASCULAR: No angina symptoms. No CHF symptoms. No atypical chest pain for CAD. No palpitations. No orthopnea. GASTROINTESTINAL: No abdominal pain. No nausea or vomiting. No diarrhea or constipation. No hematemesis. No hematochezia. GENITOURINARY: No urgency. No frequency. No dysuria. No hematuria. No obstructive symptoms. No discharge. No pain. No significant abnormal bleeding. MUSCULOSKELETAL: No musculoskeletal pain; no joint swelling. NEUROLOGICAL: No headache. No neck pain. No syncope. No seizures. No dizziness. PSYCHIATRIC: Not anxious. No depression. No suicidal thoughts. No homicidal thoughts. SKIN: No rash. No lesions. No wounds. ENDOCRINE: No unexplained weight loss. No weight gain. HEMATOLOGIC/LYMPHATIC: No anemia. No purpura. No petechiae. No prolonged or excessive bleeding. No palpable lymph nodes. PHYSICAL EXAMINATION: GENERAL: The patient is alert, confused but oriented to person. VITAL SIGNS: Temperature 97.2, pulse 60, respiratory rate 20, blood pressure 136/74 and pulse ox 97%. HEENT: Head normocephalic, atraumatic. Eyes: Extraocular muscles are intact. Pupils are equal, round and reactive to light and accommodation. Ears: No lesions. Nose appeared normal. Throat: No exudate or erythema. NECK: Supple. No JVD, no carotid bruit. No lymphadenopathy or thyromegaly. LUNGS: Decreased breath sounds but clear to auscultation. Percussion note normal. Chest symmetrical. HEART: S1, S2, no S3. No murmurs. No cyanosis or clubbing. No ascites. Pulses: Dorsalis pedis and posterior tibial pulses +1 to +2 both sides. ABDOMEN: Soft. Nontender. Bowel sounds active. No CVA tenderness. No mass felt. EXTREMITIES: No edema. Full range of motion of all extremities, equal. NEUROLOGIC: No focal deficit. Cranial nerves II through XII are grossly intact. No headache, no double vision or headache. SKIN: Not dry. Intact. Turgor - normal. LYMPHATIC: No palpable lymph nodes/no lymphedema. MUSCULOSKELETAL: Normal joints with no swelling. Muscle tone is normal. LABS: 03/19/17 shows 10.8 hgb, hct 32, WBC 7,800 normal differential, creatinine 1.3, BUN 26. CONDITION: Stable ASSESSMENT: 1. CHF seems to be resolving 2. Leg edema has practically resolved 3. Peripheral artery disease, severe seems to be stable 4. Dementia 5. Coronary artery disease 6. CHF PLAN: 1. Glucose is 81, the patient is on 20mg SUBCUT Lantus daily 2. Monitor blood glucose. TIME SPENT: More than 30 minutes. Plan and coordination of the patient's care discussed in the presence of nurse. KAMRYN
== END 2017-03-23 13:15 | disposition home or self-care (01) | DRG 292 ==
LOC: ED 13:25 → MEDSURG B 16:39
PROVIDERS: ADMIT Internal Medicine; ATTEND Internal Medicine
DX: I50.9 Heart failure, unspecified (principal); E46 Unspecified protein-calorie malnutrition; I51.7 Cardiomegaly; I10 Essential (primary) hypertension; I42.0 Dilated cardiomyopathy; I12.9 Hypertensive chronic kidney disease with stage 1 through stage 4 chronic kidney disease, or unspecified chronic kidney disease; E11.22 Type 2 diabetes mellitus with diabetic chronic kidney disease; N18.3 Chronic kidney disease, stage 3 (moderate); G30.8 Other Alzheimer's disease; F02.80 Dementia in other diseases classified elsewhere, unspecified severity, without behavioral disturbance, psychotic disturbance, mood disturbance, and anxiety; R60.0 Localized edema; E78.5 Hyperlipidemia, unspecified; I25.10 Atherosclerotic heart disease of native coronary artery without angina pectoris; R00.1 Bradycardia, unspecified; E03.9 Hypothyroidism, unspecified; D64.9 Anemia, unspecified; E53.8 Deficiency of other specified B group vitamins; E88.81 Metabolic syndrome and other insulin resistance; N40.0 Benign prostatic hyperplasia without lower urinary tract symptoms; F41.9 Anxiety disorder, unspecified; R27.0 Ataxia, unspecified; I73.9 Peripheral vascular disease, unspecified; I87.2 Venous insufficiency (chronic) (peripheral); R41.82 Altered mental status, unspecified; Z95.5 Presence of coronary angioplasty implant and graft; Z89.422 Acquired absence of other left toe(s); Z79.84 Long term (current) use of oral hypoglycemic drugs; Z79.4 Long term (current) use of insulin
CPT/HCPCS: 36415; 80053; 81001; 82550; 82962; 83880; 84484; 85025; 87081; 87651; 87804; 87880; 93005; 93010; 96374; 99284

== ENCOUNTER 2018-01-21 11:58 | Emergency (ER) ==
[2018-01-21 12:01] VITALS: BP 125/79; TEMP 98.5; BMI 29.8
--- NOTE | 2018-01-21 12:40 | ED.PDOC ---
General ED Provider: Dr. JUDY COOPER Chief Complaint: Foot Pain/Injury Stated Complaint: Patient has and open draining wound to plantar surface and involving 3 rd toe Lt. Foot. Son stated he took patient to [facility] and was advised t bring patient to ER. 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 Time Seen by Physician: 12:50 Mode of Arrival: Walk-In Information Source: Patient Exam Limitations: No limitations Primary Care Provider: JESSICA PARRISH Referred to ED by: Clinic Seen Within Last 72 Hours for Same Complaint By: Clinic Nursing and Triage Documentation Reviewed and Agree: Yes Does patient meet sepsis criteria?: No System Inflammatory Response Syndrome: Not Applicable Sepsis Protocol: For patient's 13 years and over: Temp is 96.8 and below OR 101 and greater Pulse >90 BPM Resp >20/minute Acutely Altered Mental Status Are patient's symptoms suggestive of a new infection, such as: -Pneumonia -Skin, Soft Tissue -Endocarditis -UTI -Bone, Joint Infection -Implantable Device -Acute Abdominal Infection -Wound Infection -Meningitis -Blood Stream Catheter Infection -Unknown Musculoskeletal Complaint Exam - Ankle/Foot Complaint/Exam Location of Injury: Reports: Right, Foot, Toe #3 Mechanism of Injury: Reports: No known trauma Onset/Duration: unknown Symptoms Are: Reports: Still present Initial Severity: Moderate Current Severity: Severe Location: Reports: Diffuse Character: Reports: Sharp, Aching Aggravating: Reports: Movement Associated Signs and Symptoms: Reports: Redness, Fever (purulent drainage and splitting skin of plantar surface) Related History: Reports: Similar episode Gout Risk Factors: Reports: >40 years old, Male Related Surgical History: Reports: None Lower Extremity Findings: Present: Swelling, Erythema, Warmth Achilles Tendon Abnormality: No Tenderness: Present: Metatarsals, Digits. Absent: Medial malleolus, Lateral malleolus Limited Range of Motion: Present: Dorsiflexion Differential Diagnosis: Cellulitis, Infection Review of Systems - Review Of Systems Constitutional: Reports: No symptoms, Sweats Eyes: Reports: No symptoms Ears, Nose, Mouth, Throat: Reports: No symptoms Respiratory: Reports: No symptoms Cardiac: Reports: No symptoms GI: Reports: No symptoms : Reports: No symptoms Musculoskeletal: Reports: Joint pain (lt foot), Joint swelling Skin: Reports: Change in color, Change in hair/nails, Lesions Neurological: Reports: Cognitive dysfunction, Other Endocrine: Reports: No symptoms Hematologic/Lymphatic: Reports: No symptoms All Other Systems: Reviewed and Negative Past Medical History - Past Medical History Previously Healthy: No Endocrine: Reports: DM 2 Cardiovascular: Reports: CAD, Hypertension Respiratory: Reports: None Hematological: Reports: None Gastrointestinal: Reports: None Genitourinary: Reports: None Neuro/Psych: Reports: None Musculoskeletal: Reports: None 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 - Surgical History General Surgical History: Reports: None - Family History Family History: Reports: Unknown - Social History Smoking Status: Never smoker Hx Substance Use: No Alcohol Screening: None Physical Exam - Physical Exam Appearance: Well-appearing, No pain distress, Well-nourished Ill-appearing: Moderate Pain Distress: Mild Eyes: NARAYAN, EOMI, Conjunctiva clear ENT: Ears normal, Nose normal, Oropharynx normal Respiratory: Airway patent, Breath sounds clear, Breath sounds equal, Respirations nonlabored Cardiovascular: RRR, Pulses normal, No rub, No murmur GI/: Soft, Nontender, No masses, Bowel sounds normal, No Organomegaly Musculoskeletal: Normal strength, ROM intact, No edema, No calf tenderness, Edema (Rt 3rd toe swollen, plantar aspect) Skin: Warm, Dry, Normal color Neurological: Sensation intact, Motor intact, Reflexes intact, Cranial nerves intact, Alert, Oriented Psychiatric: Affect appropriate, Mood appropriate Physician Notification - Case Discussed Physician Notified: Dr Shepherd at [facility] Time of Notification: 13:30 (Accepts pt on transfer for additional evaluation and treatmet.) Critical Care Note - Critical Care Note Total Time (mins): 60 Course - Course Hematology/Chemistry: 01/21/18 13:07 01/21/18 13:07 Orders, Labs, Meds: Lab Review 01/21/18 01/21/18 01/21/18 13:07 13:07 13:07 WBC 9.18 RBC 3.67 L Hgb 11.0 L Hct 32.3 L MCV 88.0 MCH 30.0 MCHC 34.1 RDW Coeff of Lexy 13.2 Plt Count 160 Immature Gran % (Auto) 0.3 Neut % (Auto) 73.2 Lymph % (Auto) 17.1 [place] % (Auto) 8.3 Eos % (Auto) 0.8 Baso % (Auto) 0.3 Immature Gran # (Auto) 0.0 Neut # (Auto) 6.7 Lymph # (Auto) 1.6 [place] # (Auto) 0.8 Eos # (Auto) 0.1 Baso # (Auto) 0.0 Sodium 138.6 Potassium 4.11 Chloride 104.2 Carbon Dioxide 29.5 Anion Gap 9.01 BUN 29.8 H Creatinine 1.85 H Estimated GFR (MDRD) 35.00 BUN/Creatinine Ratio 16.10 Glucose 125.8 H Lactic Acid Calcium 9.47 Total Bilirubin 0.39 AST 19.9 ALT 9.8 Alkaline Phosphatase 62.9 Total Protein 7.56 Albumin 3.91 Globulin 3.65 Albumin/Globulin Ratio 1.07 Procalcitonin < 0.05 01/21/18 13:07 WBC RBC Hgb Hct MCV MCH MCHC RDW Coeff of Lexy Plt Count Immature Gran % (Auto) Neut % (Auto) Lymph % (Auto) [place] % (Auto) Eos % (Auto) Baso % (Auto) Immature Gran # (Auto) Neut # (Auto) Lymph # (Auto) [place] # (Auto) Eos # (Auto) Baso # (Auto) Sodium Potassium Chloride Carbon Dioxide Anion Gap BUN Creatinine Estimated GFR (MDRD) BUN/Creatinine Ratio Glucose Lactic Acid 0.71 Calcium Total Bilirubin AST ALT Alkaline Phosphatase Total Protein Albumin Globulin Albumin/Globulin Ratio Procalcitonin Orders Category Date Time Status IV [ED IV/MEDIPORT/POWERPORT] .ONCE EMERGENCY 01/21/18 12:48 Active BLOOD CULTURE (ED ONLY) Stat LAB 01/21/18 13:07 Completed CBC W/ AUTO DIFF Stat LAB 01/21/18 13:07 Completed CMP [COMPREHENSIVE METABOLIC PANEL] Stat LAB 01/21/18 13:07 Completed CULTURE WOUND [WOUND CULTURE] Stat LAB 01/21/18 12:55 Completed LACTIC ACID Stat LAB 01/21/18 13:07 Completed PROCALCITONIN Stat LAB 01/21/18 13:07 Completed 0.9 % Sodium Chloride [Saline Flush] MEDS 01/21/18 12:48 Discontinued 1 syr IVF PRN PRN Cefazolin Sodium [Ancef] MEDS 01/21/18 13:47 Discontinued 1 gm .ROUTE .STK-MED ONE Cefazolin Sodium [Ancef] 1 gm MEDS 01/21/18 13:32 Discontinued 0.9 % Sodium Chloride [Sodium Chloride] 100 ml IV ONCE Medications Discontinued Medications Generic Name Dose Route Start Last Admin Trade Name Freq PRN Reason Stop Dose Admin Cefazolin Sodium 1 gm/ Sodium 100 mls @ 100 mls/hr 01/21/18 13:32 01/21/18 14 :26 Chloride IV 01/21/18 14:31 100 mls/hr ONCE STA Administration Sodium Chloride 1 syr 01/21/18 12:48 Saline Flush IVF PRN PRN To flush IV Vital Signs: Temp Pulse Resp BP Pulse Ox 01/21/18 11:58 98.5 F 62 18 125/79 96 Departure - Departure Time of Disposition: 15:00 Disposition: TSF SHORT-TRM HOSP Discharge Problem: Wound, open, foot, Diabetic foot ulcer Condition: Fair Pt referred to PMD for follow-up: Yes (adviset to see Pcp post hospitalizaton ) IPMP verified?: No Additional Instructions: Transferred to [facility] Allergies/Adverse Reactions: Allergies DANNY Inhibitors Allergy (Verified 01/21/18 12:01) perindopril erbumine [From Aceon] Adverse Reaction (Verified 01/21/18 12:01) Home Medications: Ambulatory Orders Tamsulosin HCl [Flomax] 0.4 mg PO DAILY 08/01/14 Escitalopram Oxalate [Lexapro] 10 mg PO DAILY tab-cap 07/19/15 Levothyroxine Sodium [Synthroid] 50 mcg PO DAILY tab-cap 07/19/15 Pantoprazole Sodium [Protonix] 40 mg PO DAILY tab-cap 07/19/15 Acetaminophen [Tylenol] 650 mg PO Q4H PRN 12/12/16 Aspirin [Aspirin EC] 81 mg PO DAILY 12/12/16 Atorvastatin Calcium [Lipitor] 10 mg PO BEDTIME 12/12/16 Insulin Detemir [Levemir] 20 unit SUBCUT BEDTIME 12/12/16 Memantine HCl [Namenda] 10 mg PO BID 12/12/16 Furosemide [Lasix Tab] 40 mg PO QDAC #30 tablet 03/23/17 Potassium Chloride [K-Dur] 20 meq PO DAILY #30 tab 03/23/17 Lorazepam [Ativan] 0.5 mg PO BID 01/21/18 Metolazone [Zaroxolyn] 2.5 mg PO PRN PRN 01/21/18 Quetiapine Fumarate [Seroquel] 12.5 mg PO BID 01/21/18 Transfer Form Completed: Yes Additional Information: Discussed condition with patient/family Needs transferred to ortho service at [facility] Called and spoke with Dr Marc (ortho accounting reconciliation clerk) Explained extent of foot infection and wound. Currently no evidence of Sepsis. Agrees to accept patient for consult, additional evaluation including imaging, bone scan and treatement. Cephlexin Administered IVPB after Cultures taken.
[2018-01-21] MEDS ORDERED: ANCEF 1 GM in SODIUM CHLORIDE 100 ML IV STA (13:32)
[2018-01-21] MEDS ORDERED: ANCEF ONE (13:47)
== END 2018-01-21 15:00 | disposition short-term general hospital (02) ==
LOC: ED 11:58
DX: E11.621 Type 2 diabetes mellitus with foot ulcer (principal); L97.529 Non-pressure chronic ulcer of other part of left foot with unspecified severity; I10 Essential (primary) hypertension; I25.10 Atherosclerotic heart disease of native coronary artery without angina pectoris; Z79.899 Other long term (current) drug therapy
CPT/HCPCS: 36415; 80053; 83605; 84145; 85025; 87040; 87070; 87186; 96365; 99285

== ENCOUNTER 2018-08-27 12:39 | Inpatient (IN) ==
[2018-08-27] MEDS ORDERED: NITROSTAT SL PRN (13:03)
[2018-08-27] MEDS ORDERED: ATROPINE SULFATE PFS IVP PRN (13:03)
[2018-08-27] MEDS ORDERED: VISTARIL INJ IM PRN (13:03)
[2018-08-27 13:19] VITALS: BMI 29.7
[2018-08-27] MEDS ORDERED: SODIUM CHLORIDE 1,000 ML IV SCH ×2 (13:30→13:32)
[2018-08-27] MEDS: ROCEPHIN 1 GM in SODIUM CHLORIDE 50 ML IV SCH (13:49)
[2018-08-27] MEDS ORDERED: ZAROXOLYN PO PRN (14:12)
[2018-08-27] MEDS ORDERED: ATIVAN PO PRN ×2 (14:12→14:42)
[2018-08-27] MEDS ORDERED: TYLENOL PO PRN (14:12)
--- NOTE | 2018-08-27 14:16 | CT ---
EXAM: CT of the head without contrast History: Altered mental status. Head trauma Comparison: Head CT 03/17/2017 Technique: Multiplanar CT images through the head were obtained without the administration of IV con trast Findings: The visualized paranasal sinuses and mastoid air cells are clear in general. No acute radha varial abnormalities. Intracranially the ventricular and cisternal spaces are normal in size, shape and configuration for a patient of this age. No dominant mass or midline shift. No hydrocephalous. No acute intracranial hemorrhage or abnormal extraaxial fluid collections. No change in the periventricular and subcortica l white matter hypodensities and small chronic lacunar infarctions. Impression: No acute intracranial process. Stable chronic brain changes. No change compared to the prior study
--- NOTE | 2018-08-27 14:22 | DI ---
Exam: Chest one-view. HISTORY: Cough. Comparison: 03/17/2017. Findings: Portable image of the chest demonstrates mildly expanded lungs without pneumothorax or sudeep ma. The right lateral costophrenic angle has been excluded from this image. There is no lobar conso lidation. The cardiac silhouette is at the upper limit of normal size. The thoracic aorta is partia lly calcified. Impressions: No acute cardiopulmonary disease. Atherosclerosis.
[2018-08-27] MEDS: LIPITOR PO SCH (20:37)
[2018-08-27] MEDS: SEROQUEL PO SCH (20:38)
[2018-08-27] MEDS: LANTUS SUBCUT SCH (20:38)
[2018-08-27] MEDS: HUMULIN R SUBCUT PRN (20:38)
[2018-08-27] MEDS: NAMENDA PO SCH (20:38)
[2018-08-27] MEDS ORDERED: INSULIN GLARGINE HUM REC ANLOG 30 UNIT SQ SCH (21:00)
[2018-08-28] MEDS: LASIX TAB PO SCH (05:39)
[2018-08-28] MEDS: SYNTHROID PO SCH (05:39)
[2018-08-28] MEDS: PROTONIX PO SCH (05:39)
[2018-08-28] MEDS ORDERED: ASPIRIN EC PO SCH (08:00)
[2018-08-28] MEDS: K-DUR PO SCH (09:00)
[2018-08-28] MEDS: FLOMAX PO SCH (09:00)
[2018-08-28] MEDS: LEXAPRO PO SCH (09:00)
[2018-08-28] MEDS: ASPIRIN EC PO SCH (09:00)
[2018-08-28] MEDS: NAMENDA PO SCH ×2 (09:00→20:28)
[2018-08-28] MEDS: SEROQUEL PO SCH ×2 (09:00→20:28)
[2018-08-28] MEDS ORDERED: SYNTHROID PO SCH (09:00)
[2018-08-28] MEDS: ROCEPHIN 1 GM in SODIUM CHLORIDE 50 ML IV SCH (09:02)
[2018-08-28] MEDS: SODIUM CHLORIDE 1,000 ML IV SCH (11:52)
[2018-08-28] MEDS: HUMULIN R SUBCUT PRN ×3 (12:18→20:31)
[2018-08-28] MEDS: KEFLEX PO SCH (20:28)
[2018-08-28] MEDS: LIPITOR PO SCH (20:29)
[2018-08-28] MEDS: LANTUS SUBCUT SCH (20:31)
[2018-08-29] MEDS: LASIX TAB PO SCH (05:42)
[2018-08-29] MEDS: PROTONIX PO SCH (05:43)
[2018-08-29] MEDS: SYNTHROID PO SCH (05:43)
[2018-08-29] MEDS: SODIUM CHLORIDE 1,000 ML IV SCH (08:32)
[2018-08-29] MEDS: ASPIRIN EC PO SCH (08:33)
[2018-08-29] MEDS: K-DUR PO SCH (08:33)
[2018-08-29] MEDS: FLOMAX PO SCH (08:34)
[2018-08-29] MEDS: NAMENDA PO SCH ×2 (08:34→20:31)
[2018-08-29] MEDS: LEXAPRO PO SCH (08:34)
[2018-08-29] MEDS: SEROQUEL PO SCH ×2 (08:34→20:31)
[2018-08-29] MEDS: KEFLEX PO SCH ×2 (08:34→20:31)
[2018-08-29] MEDS: HUMULIN R SUBCUT PRN ×3 (12:07→20:32)
[2018-08-29] MEDS: LANTUS SUBCUT SCH (20:31)
[2018-08-29] MEDS: LIPITOR PO SCH (20:31)
[2018-08-29] MEDS ORDERED: CALMOSEPTINE OINTMENT TP PRN (22:42)
[2018-08-30] MEDS: LASIX TAB PO SCH (05:37)
[2018-08-30] MEDS: PROTONIX PO SCH (05:37)
[2018-08-30] MEDS: HUMULIN R SUBCUT PRN ×4 (05:38→21:29)
[2018-08-30] MEDS: SYNTHROID PO SCH (05:38)
[2018-08-30] MEDS: SODIUM CHLORIDE 1,000 ML IV SCH (05:38)
[2018-08-30] MEDS: KEFLEX PO SCH ×2 (08:26→21:29)
[2018-08-30] MEDS: FLOMAX PO SCH (08:26)
[2018-08-30] MEDS: LEXAPRO PO SCH (08:27)
[2018-08-30] MEDS: SEROQUEL PO SCH ×2 (08:27→21:29)
[2018-08-30] MEDS: ASPIRIN EC PO SCH (08:27)
[2018-08-30] MEDS: K-DUR PO SCH (08:27)
[2018-08-30] MEDS: NAMENDA PO SCH ×2 (08:27→21:29)
--- NOTE | 2018-08-30 08:36 | PCM.PROG ---
Attending Provider: ATTENDING PROVIDER: Dr. JESSICA PARRISH This patient is seen with Sendy Lantigua, Nurse Practitioner. DATE OF SERVICE: 08/30/18 SUBJECTIVE: This 88 year old WHITE/ M was hospitalized 08/27/18. The patient has been eating well. He is resting comfortably. Behaviors have been controlled. He has incontinence and requires assistance for most ADL's and because of this I feel the patient is best suited for a halfway facility rather than an assisted living. REVIEW OF SYSTEMS: CONSTITUTIONAL: No night sweats. No fatigue, malaise, lethargy. No fever or chills. HEENT: Eyes: No visual changes. No eye pain. No eye discharge. ENT: No runny nose. No epistaxis. No sinus pain. No odynophagia. No congestion. RESPIRATORY: No cough, no congestion. No hemoptysis. No shortness of breath. CARDIOVASCULAR: No angina symptoms. No CHF symptoms. No atypical chest pain for CAD. No palpitations. No orthopnea.. GASTROINTESTINAL: No abdominal pain. No nausea or vomiting. No diarrhea or constipation. No hematemesis. No hematochezia. GENITOURINARY: Incontinence. No urgency. No frequency. No dysuria. No hematuria. No obstructive symptoms. No discharge. No pain. No significant abnormal bleeding. MUSCULOSKELETAL: No musculoskeletal pain; no joint swelling. NEUROLOGICAL: Confusion. No headache. No neck pain. No syncope. No seizures. No dizziness. PSYCHIATRIC: Not anxious. No depression. No suicidal thoughts. No homicidal thoughts. SKIN: No rash. No lesions. No wounds. ENDOCRINE: No unexplained weight loss. No weight gain. HEMATOLOGIC/LYMPHATIC: No anemia. No purpura. No petechiae. No prolonged or excessive bleeding. No palpable lymph nodes. PHYSICAL EXAMINATION: GENERAL: The patient is lying in bed in no distress. VITAL SIGNS: Temperature 98.4 F, Pulse 46, Respiratory Rate 16, BP 140/68, Pulse Ox 98% HEENT: Head normocephalic, atraumatic. Eyes: Extraocular muscles are intact. Pupils are equal, round and reactive to light and accommodation. Ears: No lesions. Nose appeared normal. Throat: No exudate or erythema. NECK: Supple. No JVD, no carotid bruit. No lymphadenopathy or thyromegaly. LUNGS: Diminished breath sounds. Clear to auscultation. Percussion note normal. Chest symmetrical. HEART: S1, S2, no S3. No murmurs. No cyanosis or clubbing. No ascites. Pulses: Dorsalis pedis and posterior tibial pulses +1 to +2 both sides. ABDOMEN: Soft. Non-tender. Bowel sounds active. No CVA tenderness. No mass felt. EXTREMITIES: Trace leg edema. Full range of motion of all extremities, equal. NEUROLOGIC: No focal deficit. Cranial nerves II through XII are grossly intact. No headache, no double vision or headache. SKIN: Not dry. Intact. Turgor-normal. LYMPHATIC: No palpable lymph nodes/no lymphedema. MUSCULOSKELETAL: Normal joints with no swelling. Muscle tone is normal. LAB REVIEW: 08/30/18 04:56 08/30/18 04:56 08/30/18 04:56: Sodium 140.8, Potassium 3.64, Chloride 107.5 H, Carbon Dioxide 27.0, Anion Gap 9.94, BUN 22.1 H, Creatinine 1.35 H, Estimated GFR (MDRD) 50.00 , BUN/Creatinine Ratio 16.37, Glucose 152.4 H, Calcium 8.84, Total Bilirubin 0.26, AST 15.0 L, ALT 10.4, Alkaline Phosphatase 51.3 L, Total Protein 6.08 L, Albumin 3.42 L, Globulin 2.66, Albumin/Globulin Ratio 1.28 08/30/18 04:56: WBC 5.67, RBC 3.59 L, Hgb 10.6 L, Hct 31.7 L, MCV 88.3, MCH 29.5 , MCHC 33.4, RDW Coeff of Lexy 13.4, Plt Count 139 L, Immature Gran % (Auto) 0.5 , Neut % (Auto) 61.3, Lymph % (Auto) 27.0, [place] % (Auto) 8.8, Eos % (Auto) 1.9, Baso % (Auto) 0.5, Immature Gran # (Auto) 0.0, Neut # (Auto) 3.5, Lymph # (Auto ) 1.5, [place] # (Auto) 0.5, Eos # (Auto) 0.1, Baso # (Auto) 0.0 ASSESSMENT: Please see below. 1. Dementia with behavioral disturbances 2. Head contusion status post fall, stable 3. Chronic kidney disease 4. Coughing with meals. PLAN: 1. Still awaiting speech consult 3. Discontinue IV fluids 3. Anticipate discharge to halfway facility within the next couple of days. Plan and coordination of the patient's care discussed in the presence of Water Safety Teacher and nurse. SCRIBED BY: SCOOTER STEVENS Shuttle Filler scribed while in presence of service performed by Dr. Parrish/Sendy Lantigua APRN on 08/30/18 ([id number])
--- NOTE | 2018-08-30 09:58 | HP ---
DATE OF SERVICE: 08/27/18 HISTORY OF PRESENT ILLNESS: 88-year-old male who has had multiple falls, last 08/17/18, with bruising side of face, increased confusion and lethargy. PAST MEDICAL HISTORY: Diabetes mellitus type 2 CKD, Stage 3 Depression Dementia CAD with stent Hypertension/LVH Anemia Hypothyroidism History of frequent falls History of pneumonia PAST SURGICAL HISTORY: 01/12 amputation third right toe (osteomyelitis) Dr. Trevino Amputation left toe, Dr. Wong Stent REVIEW OF SYSTEMS: CONSTITUTIONAL: Positive for fatigue. No fever. HEENT: No sinus drainage, no sore throat. RESPIRATORY: No cough, no congestion. CARDIOVASCULAR: No atypical chest pain for coronary artery disease. No angina , CHF symptoms, palpitations or shortness of breath. GASTROINTESTINAL: No melena or abdominal pain. No GERD. GENITOURINARY: No hematuria, no prostatism, no polyuria. AEROSPACE TECHNICIAN: No blackout, no dizziness, no headache, no double vision. Gait - wheelchair. MUSCULOSKELETAL: Osteoarthritis pain. ENDOCRINE: Weight loss. SKIN: Not dry, no rash. PSYCHIATRIC: Not anxious, no depression, no suicidal thoughts, no homicidal thoughts. SOCIAL HISTORY: Nonsmoker. . No alcohol use. Three children. Retired. FAMILY HISTORY: Father - respiratory - bone cancer Mother - heart, hypertension, diabetes mellitus type 2 MEDICATIONS: Lantus Solostar 30 units daily at bedtime Lipitor 10 mg one tablet p.o. at bedtime Ativan 1 mg p.o. twice daily as needed for anxiety Acetaminophen 500 mg one or two tablets by mouth every 4-6 hours as needed for pain/fever Zaroxolyn 2.5 mg one p.o. once daily as needed for swelling ALLERGIES: DANNY INHIBITORS, PERINDOPRIL ERBUMINE PHYSICAL EXAMINATION: V/S: Pulse 54, BP 108/60, 02 sat 96%. Unable to weigh. Height 6'0". GENERAL APPEARANCE: Oriented to person only. Bruising left eye and cheek. HEENT: Normal. NECK: No JVP, no bruits. RESPIRATORY: Decreased breath sounds. Lungs are clear. CARDIOVASCULAR: S1, S2, no S3, no murmurs. No cyanosis, clubbing. No ascites. GI/ABDOMEN: No tenderness. Bowel sounds are active. EXTREMITIES: +1 bilateral leg edema, pulses +1, equal. AEROSPACE TECHNICIAN: Deep tendon reflexes, sensory, motor and gait all normal. RECTAL/PROSTATE: 06/10 (1.1). Colonoscopy - patient refused. ASSESSMENT: 1. Head contusion 2. Status post fall 3. Change in mental status 4. History of frequent falls 5. History of pneumonia 6. Dementia with behavioral disorder 7. Status post amputation, third right toe with osteomyelitis 9- (Dr. Trevino) 8. Depression - on Lexapro 9. Hypothyroidism 10. Vitamin B12 deficiency 11. Amputation left toe, Dr. Wong 12. CAD with stent 13. Hypertension/LVH 14. Anemia 15. CKD, stage 3 16. Diabetes mellitus A1C 7.0 12/10; A1c 07/13 (9.3) PLAN: 1. Admit with routine telemetry orders 2. CBC, CMP now and daily 3. Fall precautions 4. UA with culture 5. CT of brain without 6. Patient is DNR - no extraordinary measures 7. Speech consult 8. 1 gm Rocephin IV daily 9. NS IV @ 75 cc/hr times one bag 10. Regular diet 11. Sliding scale coverage 12. T4, TSH TIME SPENT: More than 70 minutes. MTDD
--- NOTE | 2018-08-30 14:27 | PN ---
DATE OF SERVICE: 08/30/18 SUBJECTIVE: The patient was seen and examined with the Nurse Practitioner. The patient's mental status has improved some. Cardiovascular status stable. Waiting for usp bed. CONDITION: Improving. TIME SPENT: More than 30 minutes. Plan and coordination of the patient's care discussed in the presence of nurse. KAMRYN
[2018-08-30] MEDS: LIPITOR PO SCH (21:29)
[2018-08-30] MEDS: LANTUS SUBCUT SCH (21:34)
[2018-08-31 05:07] VITALS: BP 143/64; TEMP 98.5
[2018-08-31] MEDS: SYNTHROID PO SCH (05:58)
[2018-08-31] MEDS: LASIX TAB PO SCH (05:58)
[2018-08-31] MEDS: PROTONIX PO SCH (05:58)
[2018-08-31] MEDS: HUMULIN R SUBCUT PRN ×2 (05:59→11:15)
[2018-08-31] MEDS: KEFLEX PO SCH (08:47)
[2018-08-31] MEDS: FLOMAX PO SCH (08:47)
[2018-08-31] MEDS: LEXAPRO PO SCH (08:47)
[2018-08-31] MEDS: ASPIRIN EC PO SCH (08:47)
[2018-08-31] MEDS: SEROQUEL PO SCH (08:48)
[2018-08-31] MEDS: K-DUR PO SCH (08:48)
[2018-08-31] MEDS: NAMENDA PO SCH (08:48)
--- NOTE | 2018-08-31 09:08 | PCM.PROG ---
Attending Provider: ATTENDING PROVIDER: Dr. JESSICA PARRISH DATE OF SERVICE: 08/31/18 SUBJECTIVE: This 88 year old WHITE/ M was hospitalized 08/27/18 with dementia and change in mental status. Mental status has improved some. He is oriented to person maybe but more alert. REVIEW OF SYSTEMS: CONSTITUTIONAL: No night sweats. No fatigue, malaise, lethargy. No fever or chills. HEENT: Eyes: No visual changes. No eye pain. No eye discharge. ENT: No runny nose. No epistaxis. No sinus pain. No odynophagia. No congestion. RESPIRATORY: No cough, no congestion. No hemoptysis. No shortness of breath. CARDIOVASCULAR: No angina symptoms. No CHF symptoms. No atypical chest pain for CAD. No palpitations. No orthopnea.. GASTROINTESTINAL: No abdominal pain. No nausea or vomiting. No diarrhea or constipation. No hematemesis. No hematochezia. GENITOURINARY: No urgency. No frequency. No dysuria. No hematuria. No obstructive symptoms. No discharge. No pain. No significant abnormal bleeding. MUSCULOSKELETAL: No musculoskeletal pain; no joint swelling. NEUROLOGICAL: Awake, alert and confused. No headache. No neck pain. No syncope. No seizures. No dizziness. PSYCHIATRIC: Not anxious. No depression. No suicidal thoughts. No homicidal thoughts. SKIN: No rash. No lesions. No wounds. ENDOCRINE: No unexplained weight loss. No weight gain. HEMATOLOGIC/LYMPHATIC: No anemia. No purpura. No petechiae. No prolonged or excessive bleeding. No palpable lymph nodes. PHYSICAL EXAMINATION: GENERAL: The patient is awake, alert, lying in bed in no distress. VITAL SIGNS: Temperature 98.5 F, Pulse 76, Respiratory Rate 16, BP 143/64, Pulse Ox 94% HEENT: Head normocephalic, atraumatic. Eyes: Extraocular muscles are intact. Pupils are equal, round and reactive to light and accommodation. Ears: No lesions. Nose appeared normal. Throat: No exudate or erythema. NECK: Supple. No JVD, no carotid bruit. No lymphadenopathy or thyromegaly. LUNGS: Decreased breath sounds. Clear to auscultation. Percussion note normal. Chest symmetrical. HEART: S1, S2, no S3. No murmurs. No cyanosis or clubbing. No ascites. Pulses: Dorsalis pedis and posterior tibial pulses +1 to +2 both sides. ABDOMEN: Soft. Non-tender. Bowel sounds active. No CVA tenderness. No mass felt. EXTREMITIES: Trace edema. No foot ulcer. Right greater toe has scab, no drainage or infection. Full range of motion of all extremities, equal. NEUROLOGIC: No focal deficit. Cranial nerves II through XII are grossly intact. No headache, no double vision or headache. SKIN: Warm and dry. Intact. Turgor-normal. LYMPHATIC: No palpable lymph nodes/no lymphedema. MUSCULOSKELETAL: Normal joints with no swelling. Muscle tone is normal. LAB REVIEW: 08/31/18 05:00 08/31/18 05:00 08/31/18 05:00: Sodium 138.6, Potassium 3.85, Chloride 105.0, Carbon Dioxide 26.7, Anion Gap 10.75, BUN 27.5 H, Creatinine 1.22 H, Estimated GFR (MDRD) 56.00 , BUN/Creatinine Ratio 22.54, Glucose 153.6 H, Calcium 9.04, Total Bilirubin 0.29, AST 17.3, ALT 10.5, Alkaline Phosphatase 52.0 L, Total Protein 6.22 L, Albumin 3.53, Globulin 2.69, Albumin/Globulin Ratio 1.31 08/31/18 05:00: WBC 6.43, RBC 3.63 L, Hgb 10.8 L, Hct 31.9 L, MCV 87.9, MCH 29.8 , MCHC 33.9, RDW Coeff of Lexy 13.6, Plt Count 145, Immature Gran % (Auto) 0.3, Neut % (Auto) 61.9, Lymph % (Auto) 28.0, [place] % (Auto) 7.3, Eos % (Auto) 2.0, Baso % (Auto) 0.5, Immature Gran # (Auto) 0.0, Neut # (Auto) 4.0, Lymph # (Auto ) 1.8, [place] # (Auto) 0.5, Eos # (Auto) 0.1, Baso # (Auto) 0.0 ASSESSMENT: Please see below. 1. Dementia, overall worsening but mental status improved. 2. Chronic kidney disease 3. Coronary artery disease 4. Peripheral arterial disease 5. Anemia 6. Diabetes. PLAN: 1. Very likely will be discharged to intermediate. Plan and coordination of the patient's care discussed in the presence of Garage Construction Equipment Mechanic and nurse. SCRIBED BY: SCOOTER STEVENS Reliability Specialist scribed while in presence of service performed by Dr. JESSICA PARRISH on 08/31/18 ([id number])
--- NOTE | 2018-08-31 10:54 | CM.DICTOOL ---
ADMISSION: 08/27/18 12:39 DISCHARGE: AUGUST 31, 2018 DATE OF SERVICE: 08/31/18 FINAL DIAGNOSIS HEAD CONTUSION; S/P FALL MENTAL STATUS CHANGE FREQUENT FALLS DEMENTIA WITH BEHAVIORAL DISORDER, VASCULAR CAD WITH STENT HYPERTENSION LVH PNEUMONIA DM TYPE 2 (HGB A1C 9.3 07/13) CKD, STAGE 3 ANEMIA VIT. 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 GASPAR AMPUTATION 5TH LEFT TOE, DR. BURNETT SKIN CANCER REMOVED FROM NOSE LAST VITALS Temp Pulse Resp BP Pulse Ox 98.5 F 76 16 143/64 H 94 L 08/31/18 05:06 08/31/18 05:06 08/31/18 05:06 08/31/18 05:06 08/31/18 05:06 TAKE THESE MEDICATIONS AT HOME Acetaminophen (Tylenol) 500 mg PO Q4-6H PRN PRN Reason: pain and fever Aspirin (Aspirin Ec) 81 mg PO DAILYWM [facility] Last Admin: 08/31/18 08:47 Dose: 81 mg Atorvastatin Calcium (Lipitor) 10 mg PO BEDTIME [facility] Last Admin: 08/30/18 21:29 Dose: 10 mg Calamine/Phenol (Calmoseptine Ointment) 1 applic TP PRN PRN PRN Reason: Diaper Rash Cephalexin (Keflex) 500 mg PO Q12HR [facility] FOR 5 DAYS Last Admin: 08/31/18 08:47 Dose: 500 mg Escitalopram Oxalate (Lexapro) 10 mg PO DAILY [facility] Last Admin: 08/31/18 08:47 Dose: 10 mg Furosemide (Lasix Tab) 40 mg PO QDAC [facility] Last Admin: 08/31/18 05:58 Dose: 40 mg Insulin Glargine (Lantus) 30 unit SUBCUT BEDTIME [facility] Last Admin: 08/30/18 21:34 Dose: 30 unit Insulin Human Regular (Humulin R) 0 unit SUBCUT PRN PRN; Protocol PRN Reason: Hyperglycemia Last Admin: 08/31/18 05:59 Dose: 3 unit Levothyroxine Sodium (Synthroid) 50 mcg PO QDAC [facility] Last Admin: 08/31/18 05:58 Dose: 50 mcg Lorazepam (Ativan) 1 mg PO BID PRN PRN Reason: ANXIETY Memantine (Namenda) 10 mg PO BID [facility] Last Admin: 08/31/18 08:48 Dose: 10 mg Metolazone (Zaroxolyn) 2.5 mg PO DAILY PRN PRN Reason: Swelling Pantoprazole Sodium (Protonix) 40 mg PO QDAC [facility] Last Admin: 08/31/18 05:58 Dose: 40 mg Potassium Chloride (K-Dur) 20 meq PO DAILYWM [facility] Last Admin: 08/31/18 08:48 Dose: 20 meq Quetiapine Fumarate (Seroquel) 25 mg PO BID [facility] Last Admin: 08/31/18 08:48 Dose: 25 mg Tamsulosin HCl (Flomax) 0.4 mg PO DAILY [facility] Last Admin: 08/31/18 08:47 Dose: 0.4 mg ALLERGIES DANNY Inhibitors Allergy (Verified 01/21/18 12:01) perindopril erbumine [From Aceon] Adverse Reaction (Verified 01/21/18 12:01) DISCONTINUED MEDICATIONS NONE NEW PRESCRIPTIONS: KEFLEX 500 MG BID FOR 5 DAYS SEROQUEL 25 MG BID SMOKING: NOT APPLICABLE DISEASE SPECIFIC EDUCATION: NOT APPLICABLE, PATIENT ORIENTED TO PERSON ONLY LAB REVIEW: 08/31/18 05:00 08/31/18 05:00 08/31/18 05:00: Sodium 138.6, Potassium 3.85, Chloride 105.0, Carbon Dioxide 26.7, Anion Gap 10.75, BUN 27.5 H, Creatinine 1.22 H, Estimated GFR (MDRD) 56.00 , BUN/Creatinine Ratio 22.54, Glucose 153.6 H, Calcium 9.04, Total Bilirubin 0.29, AST 17.3, ALT 10.5, Alkaline Phosphatase 52.0 L, Total Protein 6.22 L, Albumin 3.53, Globulin 2.69, Albumin/Globulin Ratio 1.31 08/31/18 05:00: WBC 6.43, RBC 3.63 L, Hgb 10.8 L, Hct 31.9 L, MCV 87.9, MCH 29.8 , MCHC 33.9, RDW Coeff of Lexy 13.6, Plt Count 145, Immature Gran % (Auto) 0.3, Neut % (Auto) 61.9, Lymph % (Auto) 28.0, [place] % (Auto) 7.3, Eos % (Auto) 2.0, Baso % (Auto) 0.5, Immature Gran # (Auto) 0.0, Neut # (Auto) 4.0, Lymph # (Auto ) 1.8, [place] # (Auto) 0.5, Eos # (Auto) 0.1, Baso # (Auto) 0.0 PLAN: DISCHARGE TO [facility] DIET: CONSISTENT CARBOHYDRATE WITH BEDTIME SNACK DIETITIAN TO CONSULT FOR OPTIMAL NUTRITIONAL INTAKE ACTIVITY: FLOAT HEELS OFF BED UP TO CHAIR/DINING ROOM FOR MEALS ENCOURAGE TURNING/REPOSITIONING IN THE BED PHYSICAL THERAPY EVALUATION OCCUPATIONAL THERAPY EVALUATION SPEECH EVALUATION INCONTINENT CARE PRN TOILETING EVERY 2 HOURS DECUBITUS PRECAUTIONS ACCU-CHECKS AC AND HS FOLLOW DR. PARRISH'S SLIDING SCALE COVERAGE CBC, CMP IN ONE WEEK CBC, CMP EVERY 3 MONTHS TSH, A1C, LIPIDS EVERY 6 MONTHS CODE STATUS: DNR CYNDY HANDLEY APRN TO SEE ON SHELTER ROUNDS IN 7-14 DAYS MR. MOORE IS ALERT TO PERSON ONLY. HE IS COOPERATIVE WITH CARE. MR. MOORE HAS BEEN RESIDING AT [facility] IN [place], BUT RECENTLY HAS HAD SEVERAL FALLS. SCABBED AREAS ARE NOTED TO BOTH KNEES, DISCOLORATION AROUND LEFT EYE WAS NOTED ON ADMISSION, BUT HAS NOW SUBSIDED. SMALL REDDENED AREA (SCRATCH/ ABRASION) NOTED ABOVE THE LEFT EYEBROW. A STAGE I DECUBITUS IS NOTED TO THE LEFT BUTTOCK, AREA IS REDDENED. HEELS ARE INTACT. MR. MOORE IS FEEDING HIMSELF WITHOUT DIFFICULTY. MEAL INTAKES AT 100% FOR YESTERDAY AND 100% FOR BREAKFAST TODAY. HE IS INCONTINENT OF URINE. HE REQUIRES ASSISTANCE OF 2 STAFF MEMBERS FOR TRANSFERS FROM THE BED TO THE CHAIR. HE ALSO REQUIRES ASSISTANCE OF 2 STAFF MEMBERS FOR AMBULATION WITH THE ROLLING WALKER. UNSTEADY GAIT AND DIFFICULTY MANEUVERING THE ROLLING WALKER NOTED BY THERAPY. THE PATIENT TO BE TRANSPORTED BY THE SON, ANTONINA MOORE TO [facility] TODAY. JESSICA PARRISH MD
--- NOTE | 2018-08-31 11:38 | PN ---
DATE OF SERVICE: 08/29/18 SUBJECTIVE: 88 year old white male hospitalized with change in the mental status. The patient's mental status has improved. His main change in the mental status very likely was secondary to dehydration. The patient has been given IV fluids. The patient is incontinent of urine and possible urinary tract infection. He is on Keflex. He was on Rocephin before and that was discontinued. REVIEW OF SYSTEMS: CONSTITUTIONAL: No night sweats. No fatigue, malaise, lethargy. No fever or chills. HEENT: Eyes: No visual changes. No eye pain. No eye discharge. ENT: No runny nose. No epistaxis. No sinus pain. No sore throat. No odynophagia. No congestion. RESPIRATORY: No cough, no congestion. No hemoptysis. No shortness of breath. CARDIOVASCULAR: No angina symptoms. No CHF symptoms. No atypical chest pain for CAD. No palpitations. No PND. No orthopnea. GASTROINTESTINAL: No abdominal pain. No nausea or vomiting. No diarrhea or constipation. No hematemesis. No hematochezia. GENITOURINARY: No urgency. No frequency. No dysuria. No hematuria. No obstructive symptoms. No discharge. No pain. No significant abnormal bleeding. MUSCULOSKELETAL: No musculoskeletal pain; no joint swelling. NEUROLOGICAL: No headache. No neck pain. No syncope. No seizures. No dizziness. PSYCHIATRIC: Not anxious. No depression. No suicidal thoughts. No homicidal thoughts. SKIN: No rash. No lesions. No wounds. ENDOCRINE: No unexplained weight loss. No weight gain. HEMATOLOGIC/LYMPHATIC: No anemia. No purpura. No petechiae. No prolonged or excessive bleeding. No palpable lymph nodes. PHYSICAL EXAMINATION: VITAL SIGNS: Temperature 98.5, pulse 50, respiratory rate 20, blood pressure 130/60 and pulse ox 97%. HEENT: Head normocephalic, atraumatic. Eyes: Extraocular muscles are intact. Pupils are equal, round and reactive to light and accommodation. Ears: No lesions. Nose appeared normal. Throat: No exudate or erythema. NECK: Supple. No JVD, no carotid bruit. No lymphadenopathy or thyromegaly. LUNGS: Decreased breath sounds but clear to auscultation. Percussion note normal. Chest symmetrical. HEART: S1, S2, no S3. No murmurs. No cyanosis or clubbing. No ascites. Pulses: Dorsalis pedis and posterior tibial pulses +1 to +2 bilaterally. ABDOMEN: Soft. Nontender. Bowel sounds active. No CVA tenderness. No mass felt. EXTREMITIES: No edema. Full range of motion of all extremities, equal. NEUROLOGIC: No focal deficit. Cranial nerves II through XII are grossly intact. No headache, no double vision or headache. SKIN: Not dry. Intact. Turgor - normal. LYMPHATIC: No palpable lymph nodes/no lymphedema. MUSCULOSKELETAL: Normal joints with no swelling. Muscle tone is normal. LABS: Creatinine 1.4, BUN 22, potassium 3.7, hgb 10.5, hct 31, glucose 105. ASSESSMENT: 1. Dehydration seems to have resolved 2. Chronic kidney disease 3. Dementia 4. Peripheral vascular disease 5. Coronary artery disease, endstage 6. History of CHF 7. Anemia PLAN: 1. Continue IV fluids 2. Continue the rest of the medication as before 3. The patient is being considered for skilled nursing placement. TIME SPENT: More than 30 minutes. Plan and coordination of the patient's care discussed in the presence of nurse. KAMRYN
--- NOTE | 2018-09-01 12:47 | PN ---
DATE OF SERVICE: 08/28/18 SUBJECTIVE: The patient was seen and examined today. 88 year old white male hospitalized with confusion, sleepiness, head contusion. He had a CT scan which is unremarkable. No subdural noted. The patient did not have any evidence of UTI but he is incontinent of urine. He is Flomax. We will discontinue Rocephin and put him on oral Keflex. This morning is he oriented to person, more alert and not sleepy. Appetite seems to be improving. Hydration status seems to be better. REVIEW OF SYSTEMS: CONSTITUTIONAL: No night sweats. No fatigue, malaise, lethargy. No fever or chills. HEENT: Eyes: No visual changes. No eye pain. No eye discharge. ENT: No runny nose. No epistaxis. No sinus pain. No sore throat. No odynophagia. No congestion. RESPIRATORY: No cough, no congestion. No hemoptysis. No shortness of breath. CARDIOVASCULAR: No angina symptoms. No CHF symptoms. No atypical chest pain for CAD. No palpitations. No PND. No orthopnea. GASTROINTESTINAL: No abdominal pain. No nausea or vomiting. No diarrhea or constipation. No hematemesis. No hematochezia. GENITOURINARY: No urgency. No frequency. No dysuria. No hematuria. No obstructive symptoms. No discharge. No pain. No significant abnormal bleeding. MUSCULOSKELETAL: No musculoskeletal pain; no joint swelling. NEUROLOGICAL: No headache. No neck pain. No syncope. No seizures. No dizziness. PSYCHIATRIC: Not anxious. No depression. No suicidal thoughts. No homicidal thoughts. SKIN: No rash. No lesions. No wounds. ENDOCRINE: No unexplained weight loss. No weight gain. HEMATOLOGIC/LYMPHATIC: No anemia. No purpura. No petechiae. No prolonged or excessive bleeding. No palpable lymph nodes. PHYSICAL EXAMINATION: VITAL SIGNS: Temperature 97.9, pulse 49, respiratory rate 18, blood pressure 136/73, pulse ox 99%. HEENT: Head normocephalic, atraumatic. Eyes: Extraocular muscles are intact. Pupils are equal, round and reactive to light and accommodation. Ears: No lesions. Nose appeared normal. Throat: No exudate or erythema. NECK: Supple. No JVD, no carotid bruit. No lymphadenopathy or thyromegaly. LUNGS: Decreased breath sounds but clear to auscultation. Percussion note normal. Chest symmetrical. HEART: S1, S2, no S3. No murmurs. No cyanosis or clubbing. No ascites. Pulses: Dorsalis pedis and posterior tibial pulses +1 to +2 bilaterally. ABDOMEN: Soft. Nontender. Bowel sounds active. No CVA tenderness. No mass felt. EXTREMITIES: No edema. Full range of motion of all extremities, equal. No foot ulcers noted. NEUROLOGIC: No focal deficit. Cranial nerves II through XII are grossly intact. No headache, no double vision or headache. SKIN: Not dry. Intact. Turgor - normal. LYMPHATIC: No palpable lymph nodes/no lymphedema. MUSCULOSKELETAL: Normal joints with no swelling. Muscle tone is normal. LABS: Hgb 10.4, hct 31, WBC 5,600 normal differential, creatinine 1.4, BUN 25, potassium 4. ASSESSMENT: 1. Mental status seems to have improved 2. Dehydration seems to be resolving 3. Head contusion with no acute intracranial findings. 4. Dementia, seems to have improved some PLAN: 1. Continue Iv fluids, decrease the rate of IV fluids 2. The [facility]. Had a long discussion with the daughter and the daughter and the son clearly indicated that they don't want the patient to be resuscitated and also don't any kind of referral or surgery in case subdural hematoma or neurological deficit or any acute neurological event that could occur or cardiac event that could occur. They want him to be left at [facility] under my care and later on transfer him to the [facility]. TIME SPENT: More than 30 minutes. Plan and coordination of the patient's care discussed in the presence of nurse. KAMRYN
--- NOTE | 2018-09-01 13:41 | DS ---
DATE OF SERVICE: 08/31/18 FINAL DIAGNOSIS: HEAD CONTUSION; S/P FALL MENTAL STATUS CHANGE FREQUENT FALLS DEMENTIA WITH BEHAVIORAL DISORDER, VASCULAR CAD WITH STENT HYPERTENSION LVH PNEUMONIA DM TYPE 2 (HGB A1C 9.3 07/13) CKD, STAGE 3 ANEMIA VIT. 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 GASPAR AMPUTATION 5TH LEFT TOE, DR. BURNETT SKIN CANCER REMOVED FROM NOSE LAST VITALS: Temp Pulse Resp BP Pulse Ox 98.5 F 76 16 143/64 H 94 L 08/31/18 05:06 08/31/18 05:06 08/31/18 05:06 08/31/18 05:06 08/31/18 05:06 DISCHARGE INSTRUCTIONS: DISCHARGE TO [facility]. PHYSICAL THERAPY EVALUATION, OCCUPATIONAL THERAPY EVALUATION AND SPEECH EVALUATION. INCONTINENT CARE PRN. TOILETING EVERY 2 HOURS. DECUBITUS PRECAUTIONS. ACCU-CHECKS AC AND HS FOLLOW DR. PARRISH'S SLIDING SCALE COVERAGE. CBC, CMP IN ONE WEEK then CBC, CMP EVERY 3 MONTHS. TSH, A1C, LIPIDS EVERY 6 MONTHS. CODE STATUS: DNR. CYNDY HANDLEY APRN TO SEE ON PRISON ROUNDS IN 7-14 DAYS. TAKE THESE MEDICATIONS AT HOME: Acetaminophen (Tylenol) 500 mg PO Q4-6H PRN Aspirin (Aspirin Ec) 81 mg PO DAILYWM [facility] Atorvastatin Calcium (Lipitor) 10 mg PO BEDTIME [facility] Calamine/Phenol (Calmoseptine Ointment) 1 applic TP PRN PRN Cephalexin (Keflex) 500 mg PO Q12HR [facility] FOR 5 DAYS Escitalopram Oxalate (Lexapro) 10 mg PO DAILY [facility] Furosemide (Lasix Tab) 40 mg PO QDAC [facility] Insulin Glargine (Lantus) 30 unit SUBCUT BEDTIME [facility] Insulin Human Regular (Humulin R) 0 unit SUBCUT PRN PRN; Protocol Levothyroxine Sodium (Synthroid) 50 mcg PO QDAC [facility] Lorazepam (Ativan) 1 mg PO BID PRN Memantine (Namenda) 10 mg PO BID [facility] Metolazone (Zaroxolyn) 2.5 mg PO DAILY PRN Pantoprazole Sodium (Protonix) 40 mg PO QDAC [facility] Potassium Chloride (K-Dur) 20 meq PO DAILYWM [facility] Quetiapine Fumarate (Seroquel) 25 mg PO BID [facility] Tamsulosin HCl (Flomax) 0.4 mg PO DAILY [facility] ALLERGIES: DANNY Inhibitors Allergy (Verified 01/21/18 12:01) perindopril erbumine [From Aceon] Adverse Reaction (Verified 01/21/18 12:01) DISCONTINUED MEDICATIONS: NONE NEW PRESCRIPTIONS: KEFLEX 500 MG BID FOR 5 DAYS SEROQUEL 25 MG BID SMOKING: NOT APPLICABLE DISEASE SPECIFIC EDUCATION: NOT APPLICABLE, PATIENT ORIENTED TO PERSON ONLY DIET: CONSISTENT CARBOHYDRATE WITH BEDTIME SNACK DIETITIAN TO CONSULT FOR OPTIMAL NUTRITIONAL INTAKE ACTIVITY: FLOAT HEELS OFF BED UP TO CHAIR/DINING ROOM FOR MEALS ENCOURAGE TURNING/REPOSITIONING IN THE BED HOSPITAL COURSE: Wilfredo Gilbert was hospitalized because of change in the mental status. The patient was dehydration and he was given IV fluids. Renal functions have improved. His hydration status improved. He was treated for possibility of UTI. His overall status is improved. He has been taken off practically Ativan. He is more alert, still confused. Dementia is practically endstage which is vascular dementia. The patient has severe coronary artery disease and peripheral arterial disease. He has no ulcers on his feet. Scab on the right toe noted which is old scar tissue. Peripheral circulation is compromised. In any case the patient's appetite had improved some. Mental status improved some with orientation to the person. The patient's POA, son and daughter both don't want any further intervention in a way of any operations or invasive procedures from now on. The patient is a DNR. His prognosis is poor. Medical condition is stable. The patient was living in assisted living in [place] it was a special place [facility] and they are unable to take care of him. He did not fit their criteria so he was discharged from that and now he is going to be admitted to the senior living. CONDITION: Stable. PROGNOSIS: Poor. TIME SPENT: More than 60 minutes. BRIAD
--- NOTE | 2018-09-01 13:42 | PN ---
08/27/18: Level 5 08/28/18: Intermediate 08/29/18: Intermediate 08/30/18: Intermediate 08/31/18: D as in discharge MTDD
== END 2018-08-31 13:50 | DRG 947 ==
LOC: MEDSURG B 12:39
PROVIDERS: ADMIT Internal Medicine; ATTEND Internal Medicine
DX: R41.82 Altered mental status, unspecified (principal); J18.9 Pneumonia, unspecified organism; F03.91 Unspecified dementia, unspecified severity, with behavioral disturbance; I50.1 Left ventricular failure, unspecified; I25.10 Atherosclerotic heart disease of native coronary artery without angina pectoris; I10 Essential (primary) hypertension; I73.9 Peripheral vascular disease, unspecified; N18.3 Chronic kidney disease, stage 3 (moderate); D64.9 Anemia, unspecified; E11.9 Type 2 diabetes mellitus without complications; E53.8 Deficiency of other specified B group vitamins; E03.9 Hypothyroidism, unspecified; E86.0 Dehydration; F32.9 Major depressive disorder, single episode, unspecified; Z91.81 History of falling
CPT/HCPCS: 36415; 80053; 81001; 82550; 82962; 84436; 84443; 84484; 85025; 93005; 93010; 97802

== ENCOUNTER 2018-10-10 07:23 | Outpatient (CLI) | END 2018-10-10 07:43 | disposition short-term general hospital (02) | LOC: AMBL 07:23 | PROVIDERS: ATTEND Family Medicine | DX: M25.552 Pain in left hip (principal); R53.1 Weakness; W19.XXXA Unspecified fall, initial encounter ==